=== PATIENT | female | born 1955 | race African-American/Black ===

== ENCOUNTER 2016-10-30 12:39 | Emergency (ER) | payer MEDICARE, MEDICAID ==
[~2016-10-30] VITALS: Ht 149.9 cm; Wt 72.0 kg
[~2016-10-30 12:39] MED LIST: ATOR10 PO; CARV6.25 PO; CLOP75 PO; ECASA PO; GLIP10TA6 PO; GLUCTAB PO; HYDR12.56 PO; LOSA50TA PO; OMEP20TA39 PO; ZOFR4TAB3 PO
[2016-10-30 12:41] VITALS: BP 159/63; PULSE 89; RESP 16; TEMP 98.6; O2SAT 96
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
[2016-10-30] MEDS ORDERED: FLUCONAZOLE 100 MG TAB PO ONE (13:45)
[2016-10-30] MEDS ORDERED: LIPI80TA PO (14:15)
[2016-10-30] MEDS ORDERED: AMLO10TA2 PO (14:15)
[2016-10-30] MEDS ORDERED: OMEP20TA PO (14:15)
[2016-10-30] MEDS ORDERED: METF500T PO (14:15)
[2016-10-30] MEDS ORDERED: BRIL90TA PO (14:15)
[2016-10-30] MEDS ORDERED: SPIR25TA PO (14:15)
[2016-10-30] MEDS ORDERED: GLIP5TAB8 PO (14:15)
[2016-10-30] MEDS ORDERED: LOSA50TA PO (14:15)
[2016-10-30] MEDS ORDERED: CLON0.1T PO (14:15)
[2016-10-30] MEDS ORDERED: CORE25TA PO (14:15)
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
[2016-10-30] MEDS ORDERED: NYSTPOW TOPICAL (15:19)
[2016-10-30] MEDS ORDERED: MAGICADU2 SWISH-SWAL (15:19)
== END 2016-10-30 18:53 | disposition home or self-care (01) ==
LOC: NEPD 12:39
DX: B37.0 Candidal stomatitis (principal); B37.3 Candidiasis of vulva and vagina; S82.132A Displaced fracture of medial condyle of left tibia, initial encounter for closed fracture; I11.0 Hypertensive heart disease with heart failure; I50.9 Heart failure, unspecified; M06.9 Rheumatoid arthritis, unspecified; J44.9 Chronic obstructive pulmonary disease, unspecified; E11.9 Type 2 diabetes mellitus without complications; W19.XXXA Unspecified fall, initial encounter
CPT/HCPCS: 73564; 99284

== ENCOUNTER 2017-05-08 20:02 | Emergency (ER) | payer MEDICARE, MEDICAID ==
[~2017-05-08] VITALS: Ht 149.9 cm; Wt 70.0 kg
[~2017-05-08 20:02] MED LIST changes: +AMLO10TA2 PO; -ATOR10 PO; +BRIL90TA PO; -CARV6.25 PO; +CLON0.1T PO; -CLOP75 PO; +CORE25TA PO; -ECASA PO; -GLIP10TA6 PO; +GLIP5TAB8 PO; -GLUCTAB PO; -HYDR12.56 PO; +LIPI80TA PO; +MAGICADU2 SWISH-SWAL; +METF500T PO; +NYSTPOW TOPICAL; -OMEP20TA39 PO; +OMEP20TA93 PO; +SPIR25TA PO; -ZOFR4TAB3 PO
[2017-05-08 20:17] VITALS: BP 173/72; PULSE 93; RESP 20; TEMP 98.4; O2SAT 100
[2017-05-08] MEDS ORDERED: SODIUM CHLORIDE 0.9% FLUSH 10 ML FLUSH IVF PRN (20:30)
[2017-05-08 20:47] VITALS: RESP 20; O2SAT 99
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
[2017-05-08 21:01] LABS: AUTOMATED NEUTROPHIL # 5.9 TH/MM3 (1.8-7.7); BASOPHIL % 0.3 % (0.0-2.0); EOSINOPHIL % 0.1 % (0.0-4.0); HEMATOCRIT 39.1 % (35.0-46.0); HEMOGLOBIN 13.2 GM/DL (11.6-15.3); LYMPH % 9.5 % (9.0-44.0); LYMPHOCYTE # 0.6 TH/MM3 (1.0-4.8); MEAN CELL VOLUME 87.3 FL (80.0-100.0); MEAN CORPUSCULAR HEMOGLOBIN 29.4 PG (27.0-34.0); MEAN CORPUSCULAR HGB CONC 33.7 % (32.0-36.0); MEAN PLATELET VOLUME 9.5 FL (7.0-11.0); MONO % 2.7 % (0.0-8.0); MONOCYTE # 0.2 TH/MM3 (0-0.9); NEUT % 87.4 % (16.0-70.0); PLATELET COUNT 253 TH/MM3 (150-450); RED BLOOD COUNT 4.48 MIL/MM3 (4.00-5.30); RED CELL DISTRIBUTION WIDTH 14.6 % (11.6-17.2); WHITE BLOOD COUNT 6.7 TH/MM3 (4.0-11.0)
[2017-05-08 21:07] VITALS: BP 145/65; PULSE 88; RESP 18; O2SAT 98
--- NOTE | 2017-05-08 21:31 | RADRPT ---
EXAM DATE/TIME: 05/08/2017 20:43 [facility] COMPARISON: No previous studies available for comparison. INDICATIONS : Short of breath. MEDICAL HISTORY : Myocardial infarction. Cholelithiasis. Emphysema. Coronary artery disease. Diabetes. SURGICAL HISTORY : Coronary artery stent. ENCOUNTER: Initial ACUITY: 1 day PAIN SCORE: 0/10 LOCATION: Bilateral chest FINDINGS: A single view of the chest demonstrates the lungs to be symmetrically aerated without evidence of mas s, infiltrate or effusion. The cardiomediastinal contours are unremarkable. Osseous structures are intact. CONCLUSION: 1. No active disease. Tortuous aorta. Brad Mahmood MD on May 08, 2017 at 21:26 Board Certified Radiologist. This report was verified electronically.
[2017-05-08 22:17] LABS: BICARBONATE 20.2 MEQ/L (21.0-32.0); CALCIUM 9.6 MG/DL (8.5-10.1); CREATININE 1.09 MG/DL (0.50-1.00)
[2017-05-08] MEDS ORDERED: SODIUM CHLOR 0.9% 1000 ML INJ 1,000 ML IV ONE (22:30)
[2017-05-08 22:54] VITALS: BP 116/53; PULSE 79; RESP 18; O2SAT 99
[2017-05-09 04:03] VITALS: BP 167/64; PULSE 64; RESP 18; O2SAT 99
[2017-05-09 08:52] VITALS: BP 165/69; PULSE 62; RESP 19; TEMP 98.5; O2SAT 98
--- NOTE | 2017-05-09 14:18 | EKG ---
Date Performed: 05/08/2017 Time Performed: 20:50:36 PTAGE: 62 years EKG: Baseline artifact present Sinus rhythm NONSPECIFIC T-WAVE ABNORMALITY BORDERLINE ECG No significant change from prior electrocardiogram. PREVIOUS TRACING : 02/20/2015 19.04 DOCTOR: Ruy Dotson Interpretating Date/Time 05/09/2017 14:16:44
== END 2017-05-09 09:36 | disposition home or self-care (01) ==
LOC: NEPC 20:02 → NEPD 05-09 09:36
DX: R05 Cough (principal); R06.00 Dyspnea, unspecified; E86.0 Dehydration; R94.31 Abnormal electrocardiogram [ECG] [EKG]; E11.9 Type 2 diabetes mellitus without complications; I11.0 Hypertensive heart disease with heart failure; I50.9 Heart failure, unspecified; J43.9 Emphysema, unspecified; F17.200 Nicotine dependence, unspecified, uncomplicated
CPT/HCPCS: 71045; 80048; 83605; 85025; 87040; 93005

== ENCOUNTER 2017-08-08 01:45 | Inpatient (IN) | payer MEDICARE, MEDICAID ==
[2017-08-08] VITALS (11 sets, daily range): BP systolic 107–203; BP diastolic 67–92; PULSE 57–75; RESP 17–24; TEMP 97.6–98.3; O2SAT 98–100
[~2017-08-08] VITALS: Ht 152.4 cm; Wt 74.9 kg
--- NOTE | 2017-08-08 02:00 | PD ---
HPI Chief Complaint: Neuro Symptoms/ Deficits Time Seen by Provider: 01:55 Travel History International Travel<30 days: No Contact w/Intl Traveler<30days: No Traveled to known affect area: No History of Present Illness HPI Patient developed nausea vomiting and weakness along with some mental status changes according to the family. Per chart review allergies to ampicillin codeine latex lisinopril and penicillin Past medical history significant for tonsillectomy, wearing corrective lenses, CVA, hypertension, ME, CHF, repair of aortic dissection in 1988, hypercholesterolemia, hypertension, COPD, diverticulitis, diabetes, bowel resection, rheumatoid arthritis, diverticulitis, PFSH Past Medical History Arthritis: Yes Asthma: Yes Autoimmune Disease: No Blood Disorders: No Heart Rhythm Problems: Yes (MURMUR) Cancer: No Cardiac Catheterization: Yes Cardiovascular Problems: Yes (HTN) High Cholesterol: Yes Chemotherapy: No Chest Pain: Yes Congestive Heart Failure: Yes COPD: Yes Cerebrovascular Accident: Yes Diabetes: Yes Diminished Hearing: No Gastrointestinal Disorders: Yes (DIVERTICULITIS, FISTULA) Genitourinary: No Headaches: No Hypertension: Yes Immune Disorder: No Implanted Vascular Access Dvce: Yes Musculoskeletal: Yes (RHEUMATOID) Neurologic: Yes Psychiatric: No Reproductive: No Respiratory: Yes Immunizations Current: Yes Migraines: No Myocardial Infarction: Yes Radiation Therapy: No Seizures: No Sleep Apnea: Yes Thyroid Disease: No PNEUMOCCOCAL Vaccine (Year): 2009 Menopausal: Yes Past Surgical History Abdominal Surgery: Yes Appendectomy: Yes Body Medical Devices: STENTS Cardiac Surgery: Yes (REPAIR OF AORTIC DISSECTION 1988, CARDIAC CATHERIZATION) Cholecystectomy: Yes Coronary Stent: Yes Oral Surgery: Yes (T & A) Pacemaker: No Tonsillectomy: Yes Other Surgery: Yes (BOWEL RESECTION) Social History Alcohol Use: No Tobacco Use: Yes (1 PPW) Substance Use: No Allergies-Medications (Allergen,Severity, Reaction): Coded Allergies: ampicillin (Unverified Allergy, Severe, Anaphylaxis, 05/08/17) penicillin G (Unverified Allergy, Severe, TONGUE SWELLS BREATHING ISSUES, 05/08/17) codeine (Unverified Allergy, Intermediate, RASH, 05/08/17) latex (Unverified Allergy, Intermediate, RASH,HIVES, 05/08/17) lisinopril (Unverified Allergy, Mild, Cough, 05/08/17) Reported Meds & Prescriptions Reported Meds & Active Scripts Active Reported Advair Diskus Inh (Fluticasone-Salmeterol Inh) 250-50 Mcg/Blist Aer 1 Puff INH BID Rinse mouth after use. Nystatin-Triamcinolone 100,000-0.1 Unit/Gm Oint 1 Applic TOPICAL DAILY Vandazole Vaginal Gel (Metronidazole) 0.75 % Gel 1 Appl VAGINAL HS Fluconazole 200 Mg Tab 200 Mg PO BID Aspirin 81 Mg Chew 81 Mg CHEW DAILY Ammonium Lactate (Lactic Acid (Ammonium Lactate)) 12% Lotn 1 Applic TOPICAL TID Brilinta (Ticagrelor) 90 Mg Tab 90 Mg PO BID Omeprazole 20 Mg Tab 20 Mg PO DAILY Glipizide 5 Mg Tab 5 Mg PO DAILY Take 30 minutes before a meal Clonidine (Clonidine HCl) 0.1 Mg Tab 0.1 Mg PO TID Physical Exam Narrative GENERAL: amereican lady. SKIN: Warm and dry. HEAD: Atraumatic. Normocephalic. EYES: Pupils equal and round. No scleral icterus. No injection or drainage. ENT: No nasal bleeding or discharge. Mucous membranes pink and moist. NECK: Trachea midline. No JVD. CARDIOVASCULAR: Regular rate and rhythm. RESPIRATORY: No accessory muscle use. Clear to auscultation. Breath sounds equal bilaterally. GASTROINTESTINAL: Abdomen soft, non-tender, nondistended. Hepatic and splenic margins not palpable. MUSCULOSKELETAL: Extremities without clubbing, cyanosis, or edema. No obvious deformities. NEUROLOGICAL: Arousable to verbal, though somnolent.. No obvious cranial nerve deficits. Motor grossly within normal limits. 4 out of 5 muscle strength in the left arms and legs. mild facial asymetry noted...groggy and somnolent. PSYCHIATRIC: Appropriate mood and affect; insight and judgment normal. Data Data Last Documented VS Vital Signs Date Time Temp Pulse Resp B/P (MAP) Pulse Ox O2 Delivery O2 Flow Rate FiO2 08/08/17 03:45 61 20 162/72 (102) 98 Room Air 08/08/17 01:51 98.2 Orders Orders Electrocardiogram (08/08/17 01:55) Complete Blood Count With Diff (08/08/17 01:55) Comprehensive Metabolic Panel (08/08/17 01:55) Ckmb (Isoenzyme) Profile (08/08/17 01:55) Troponin I (08/08/17 01:55) B-Type Natriuretic Peptide (08/08/17 01:55) Prothrombin Time / Inr (Pt) (08/08/17 01:55) Act Partial Throm Time (Ptt) (08/08/17 01:55) Lipase (08/08/17 01:55) Urinalysis - C+S If Indicated (08/08/17 01:55) Thyroid Stimulating Hormone (08/08/17 01:55) Chest, Single Ap (08/08/17 01:55) Ct Brain W/O Iv Contrast(Rout) (08/08/17 01:55) Iv Access Insert/Monitor (08/08/17 01:55) Ecg Monitoring (08/08/17 01:55) Oximetry (08/08/17 01:55) Urinary Catheter Insert/Apply (08/08/17 01:55) Admit Order (Ed Use Only) (08/08/17 03:59) Place In Observation (08/08/17 ) Vital Signs (Adult) Q2HX12,Q4H (08/08/17 03:58) Nih Stroke Scale - Nihss .Daily (08/08/17 03:58) Neuro Checks Q2HX12,Q4H (08/08/17 03:58) Notify Dr: Other (08/08/17 03:58) Remove Urinary Catheter .ONCE (08/08/17 03:58) Ot Request For Service (08/08/17 03:58) Pt Request For Service (08/08/17 03:58) Case Management Consult (08/08/17 ) Activity Oob Ad Maye (08/08/17 03:58) Nursing Bedside Swallow Assess .ONCE (08/08/17 03:58) Scd Bilateral/Knee High DORIAN.QSHIFT (08/08/17 03:58) Hemoglobin (Hgb) A1c (08/08/17 03:58) Lipid Profile (08/09/17 06:00) Us Carotid Arteries Comp Bilat (08/08/17 ) Mra Brain W/O Contrast (Cow) (08/08/17 ) Mri Brain W/O Contrast (08/08/17 ) Echo 2d Comp With Doppler (08/08/17 ) ^ Hold Medication (08/08/17 03:58) Consult Neurology (08/08/17 ) Sodium Chloride 0.9% Flush (Ns Flush) (08/08/17 09:00) Sodium Chloride 0.9% Flush (Ns Flush) (08/08/17 04:00) Sodium Chlor 0.9% 1000 Ml Inj (Ns 1000 M (08/08/17 03:58) Aspirin (Aspirin) (08/08/17 04:00) Bedside Glucose DORIAN.CSUGAR (08/08/17 03:58) ^ Discontinue Insulin Orders (08/08/17 03:58) Insulin Aspart Supplemtl Scale (Novolog (08/08/17 08:00) Dextrose 50% In Sherry (Vial) Inj (D50w (Vi (08/08/17 04:00) Glucagon Inj (Glucagon Inj) (08/08/17 04:00) Business Center Attendant / Telemetry DORIAN.Q8H (08/08/17 03:58) Consult Stroke Navigator (08/08/17 ) Heparin Inj (Heparin Inj) (08/08/17 04:00) Nursing Bedside Swallow Assess .ONCE (08/08/17 04:01) Labs Laboratory Tests Test 08/08/17 02:10 White Blood Count 6.8 TH/MM3 Red Blood Count 4.48 MIL/MM3 Hemoglobin 13.7 GM/DL Hematocrit 39.3 % Mean Corpuscular Volume 87.8 FL Mean Corpuscular Hemoglobin 30.5 PG Mean Corpuscular Hemoglobin Concent 34.7 % Red Cell Distribution Width 13.8 % Platelet Count 230 TH/MM3 Mean Platelet Volume 9.1 FL Neutrophils (%) (Auto) 65.2 % Lymphocytes (%) (Auto) 27.5 % Monocytes (%) (Auto) 5.4 % Eosinophils (%) (Auto) 1.4 % Basophils (%) (Auto) 0.5 % Neutrophils # (Auto) 4.4 TH/MM3 Lymphocytes # (Auto) 1.9 TH/MM3 Monocytes # (Auto) 0.4 TH/MM3 Eosinophils # (Auto) 0.1 TH/MM3 Basophils # (Auto) 0.0 TH/MM3 CBC Comment DIFF FINAL Differential Comment Prothrombin Time 9.8 SEC Prothromb Time International Ratio 1.0 RATIO Activated Partial Thromboplast Time 26.4 SEC Blood Urea Nitrogen 20 MG/DL Creatinine 0.96 MG/DL Random Glucose 148 MG/DL Total Protein 8.5 GM/DL Albumin 3.4 GM/DL Calcium Level 8.5 MG/DL Alkaline Phosphatase 120 U/L Aspartate Amino Transf (AST/SGOT) 13 U/L Alanine Aminotransferase (ALT/SGPT) 17 U/L Total Bilirubin 0.3 MG/DL Sodium Level 141 MEQ/L Potassium Level 3.4 MEQ/L Chloride Level 107 MEQ/L Carbon Dioxide Level 24.0 MEQ/L Anion Gap 10 MEQ/L Estimat Glomerular Filtration Rate 71 ML/MIN Hemoglobin A1c 7.0 % Total Creatine Kinase 59 U/L Troponin I LESS THAN 0.02 NG/ML B-Type Natriuretic Peptide 51 PG/ML Lipase 127 U/L Thyroid Stimulating Hormone 3rd Gen 1.320 uIU/ML MDM Medical Decision Making Medical Screen Exam Complete: Yes Emergency Medical Condition: Yes Medical Record Reviewed: Yes Interpretation(s) EKG shows normal sinus rhythm, left atrial enlargement, 61 bpm, inverted T waves on [address] elevation ME pattern noted. Differential Diagnosis Intracranial hemorrhage versus UTI versus pneumonia versus electrolyte abnormality versus dehydration versus anemia Narrative Course CBC shows no leukocytosis, no anemia, normal platelet count, no left shift Coagulation profile is within normal limits Electrolytes are all within normal limits, normal kidney/liver/pancreatic functions First set of cardiac enzymes are negative Chest x-ray read by radiologist as negative examination with healed left-sided rib fractures CT head read by radiologist as lateral ventricular enlargement stable no evidence of acute hemorrhage or edema. No interval change since December 2015. Diagnosis Primary Impression: Generalized weakness Additional Impressions: Debility unable to walk [facility] Admitting Information Admitting Physician Requests: Adalberto Huber MD Aug 08, 2017 02:00
[2017-08-08] MEDS ORDERED: ADVA250A INH (02:24)
[2017-08-08] MEDS ORDERED: AMMO12LO TOPICAL (02:24)
[2017-08-08] MEDS ORDERED: ASPI-516 CHEW (02:24)
[2017-08-08] MEDS ORDERED: NYST1OIN TOPICAL (02:24)
[2017-08-08] MEDS ORDERED: FLUC200T2 PO (02:24)
[2017-08-08] MEDS ORDERED: METR.75%V VAGINAL (02:24)
--- NOTE | 2017-08-08 02:29 | RADRPT ---
EXAM DATE: 08/08/2017 2:24 AM EDT AGE/SEX: 62 years / Female INDICATIONS: Altered mental status. CLINICAL DATA: This is the patient's initial encounter. Patient reports that signs and symptoms have been present for 1 day and indicates a pain score of 4/10. MEDICAL/SURGICAL HISTORY: Hypertension. Stroke. None. RADIATION DOSE: 56.35 CTDI (mGy) COMPARISON: [place], CT BRAIN W/O CONTRAST, 12/22/2015. . TECHNIQUE: CT of the head without contrast. Using automated exposure control and adjustment of the mA and/or kV according to patient size, radiation dose was kept as low as reasonably achievable to ob tain optimal diagnostic quality images. DICOM format image data is available electronically for revi ew and comparison. FINDINGS: Cerebrum: The ventricles remain prominent in size. There is periventricular areas of decreased densi ty bilaterally and symmetric. There is some encephalomalacia in the right posterior frontal region, u nchanged. There is hypodensity in the left basal ganglia, unchanged. No evidence of acute hemorrhage or subdural. Posterior Fossa: The cerebellum and brainstem are intact. The 4th ventricle is midline. The cerebe llopontine angle is unremarkable. Extracranial: The visualized portion of the orbits is intact. Skull: The calvaria is intact. No evidence of skull fracture. CONCLUSION: 1. Marked lateral ventricular enlargement stable. No evidence of acute hemorrhage or edema. No inter destini change since December 2015 Electronically signed by: Daniel Connelly MD 08/08/2017 2:28 AM EDT
[2017-08-08 02:33] LABS: AUTOMATED NEUTROPHIL # 4.4 TH/MM3 (1.8-7.7); BASOPHIL % 0.5 % (0.0-2.0); EOSINOPHIL # 0.1 TH/MM3 (0-0.4); EOSINOPHIL % 1.4 % (0.0-4.0); HEMATOCRIT 39.3 % (35.0-46.0); HEMOGLOBIN 13.7 GM/DL (11.6-15.3); LYMPH % 27.5 % (9.0-44.0); LYMPHOCYTE # 1.9 TH/MM3 (1.0-4.8); MEAN CELL VOLUME 87.8 FL (80.0-100.0); MEAN CORPUSCULAR HEMOGLOBIN 30.5 PG (27.0-34.0); MEAN CORPUSCULAR HGB CONC 34.7 % (32.0-36.0); MEAN PLATELET VOLUME 9.1 FL (7.0-11.0); MONO % 5.4 % (0.0-8.0); MONOCYTE # 0.4 TH/MM3 (0-0.9); NEUT % 65.2 % (16.0-70.0); PLATELET COUNT 230 TH/MM3 (150-450); RED BLOOD COUNT 4.48 MIL/MM3 (4.00-5.30); RED CELL DISTRIBUTION WIDTH 13.8 % (11.6-17.2); WHITE BLOOD COUNT 6.8 TH/MM3 (4.0-11.0)
--- NOTE | 2017-08-08 02:37 | RADRPT ---
EXAM DATE: 08/08/2017 2:30 AM EDT AGE/SEX: 62 years / Female INDICATIONS: Severe headache with nausea and altered mental status. CLINICAL DATA: This is the patient's initial encounter. Patient reports that signs and symptoms have been present for 1 day and indicates a pain score of 0/10. MEDICAL/SURGICAL HISTORY: . Myocardial infarction. Cholelithiasis. Emphysema Coronary artery stent. COMPARISON: [facility] – [place], CHEST SINGLE AP, 05/08/2017. . FINDINGS: A single AP view of the chest demonstrates the lungs to be symmetrically aerated without evidence of mass, infiltrate or effusion. The cardiomediastinal contours are unremarkable. Osseous structures a re intact. Numerous healed left-sided rib fractures unchanged CONCLUSION: Negative examination with numerous healed left-sided rib fractures. Electronically signed by: Daniel Connelly MD 08/08/2017 2:36 AM EDT
[2017-08-08 02:44] LABS: PROTHROMBIN TIME - PATIENT 9.8 SEC (9.8-11.6)
[2017-08-08 03:01] LABS: ALBUMIN 3.4 GM/DL (3.4-5.0); ALT (GPT) 17 U/L (10-53); AST (GOT) 13 U/L (15-37); BLOOD UREA NITROGEN 20 MG/DL (7-18); CALCIUM 8.5 MG/DL (8.5-10.1); CHLORIDE 107 MEQ/L (98-107); CREATININE 0.96 MG/DL (0.50-1.00); GLOMERULAR FILTRATION RATE 71 ML/MIN (>89); GLUCOSE,RANDOM 148 MG/DL (74-106); SODIUM (NA) 141 MEQ/L (136-145)
[2017-08-08 03:11] LABS: ALKALINE PHOSPHATASE 120 U/L (45-117); TOTAL BILIRUBIN ADULT 0.3 MG/DL (0.2-1.0); TOTAL PROTEIN 8.5 GM/DL (6.4-8.2); TROPONIN I LESS THAN 0.02 NG/ML (0.02-0.05)
[2017-08-08] MEDS ORDERED: SODIUM CHLORIDE 0.9% FLUSH 10 ML FLUSH IV FLUSH PRN (04:00)
[2017-08-08] MEDS ORDERED: GLUCAGON 1 MG/ML VIAL OTHER PRN (04:00)
[2017-08-08] MEDS ORDERED: DEXTROSE 50% IN WATER 50 ML VIAL(D50) IV PUSH PRN (04:00)
[2017-08-08] MEDS ORDERED: POTASSIUM CHLORIDE 20 MEQ CONTROLLED RELEASE TAB PO ONE (04:15)
[2017-08-08] MEDS: ASPIRIN 325 MG TAB PO SCH ×2 (05:22→09:00)
[2017-08-08] MEDS: SODIUM CHLOR 0.9% 1000 ML INJ 1,000 ML IV SCH ×2 (05:22→18:16)
[2017-08-08] MEDS: HEPARIN SODIUM - SQ 10,000 UNITS/ML VIAL SQ SCH ×3 (05:23→21:52)
[2017-08-08 05:55] LABS: BILIRUBIN, URINE NEG (NEG); BLOOD, URINE SMALL (NEG); GLUCOSE,URINE 50 mg/dL (NEG); KETONE, URINE NEG (NEG); MUCUS URINE FEW /lpf (OCC); NITRITE,URINE NEG (NEG); SQUAMOUS EPITHELIAL CELL URINE 1 /hpf (0-5); URINE COLOR YELLOW (YELLW/STRAW); URINE LEUKOCYTE ESTERASE NEG (NEG)
[2017-08-08] MEDS: INSULIN ASPART SUPPLEMENTAL SCALE SQ SCH ×4 (08:00→21:52)
[2017-08-08] MEDS: ATORVASTATIN 80 MG TAB PO SCH ×2 (09:00→10:52)
[2017-08-08] MEDS: CARVEDILOL 12.5 MG TAB PO SCH ×2 (09:00→10:51)
[2017-08-08] MEDS: LOSARTAN 50 MG TAB PO SCH ×2 (09:00→10:52)
[2017-08-08] MEDS: SPIRONOLACTONE 25 MG TAB PO SCH ×2 (09:00→10:57)
[2017-08-08] MEDS: SODIUM CHLORIDE 0.9% FLUSH 10 ML FLUSH IV FLUSH SCH ×2 (09:00→21:53)
--- NOTE | 2017-08-08 09:14 | RADRPT ---
EXAM DATE: 08/08/2017 8:55 AM EDT AGE/SEX: 62 years / Female INDICATIONS: Transient ischemic attack. CLINICAL DATA: This is the patient's initial encounter. Patient reports that signs and symptoms have been present for 1 day and indicates a pain score of 0/10. MEDICAL/SURGICAL HISTORY: Hypertension. Hypercholesterolemia. Chronic obstructive pulmonary d isease. Glasses. Myocardial infarction. Congestive heart failure. Chest pain. Asthma. Emphysema. Sle ep apnea. Dyspnea. Arthritis. Diabetes. Tonsillectomy. Cholecystectomy. Appendectomy. Adenoidecto my. Cardiac catheterization. Aortic dissection repair. Coronary artery stent. Bowel resection. COMPARISON: No prior exams available for comparison. VELOCITY PARAMETERS: ICA/CCA Ratio: Right 1.7 , Left 1.9 ICA: Right 115.6 cm/sec, Left 119.6 cm/sec CCA: Right 66.9 cm/sec, Left 63.3 cm/sec ECA: Right 101.8 cm/sec, Left 52.3 cm/sec Vertebral: Right 43.5 cm/sec antegrade, Left 47.9 cm/sec antegrade FINDINGS: Right Carotid: Moderate arteriosclerotic plaque is visualized.The waveforms are within normal limits . Left Carotid: Moderate arteriosclerotic plaque is visualized. The waveforms are within normal limits . Other: None. CONCLUSION: There is moderate atherosclerotic plaque seen at the carotid bulb regions but a hemodynam ically significant stenosis is not seen. Electronically signed by: Eduin Muir MD 08/08/2017 9:13 AM EDT
--- NOTE | 2017-08-08 10:03 | RADRPT ---
EXAM DATE: 08/08/2017 9:24 AM EDT AGE/SEX: 62 years / Female INDICATIONS: TIA. Altered mental status. CLINICAL DATA: This is the patient's initial encounter. Patient reports that signs and symptoms have been present for 1 day and indicates a pain score of 0/10. MEDICAL/SURGICAL HISTORY: Hypertension. Cerebrovascular disease. Congestive heart failure. Ch olecystectomy. Tonsillectomy. Appendectomy. Aortic dissection repair. Bowel resection. COMPARISON: [facility] – [place], MRA BRAIN W/O CONTRAST, 05/27/2014. [facility] [place], MRI BRAIN W/O CONTRAST, 08/08/2017. . TECHNIQUE: 3D [id number] MRA was performed. Source images, multiplanar STS MIP, and 3D volum e MIP reconstructions were reviewed. FINDINGS: There is excellent visualization of the major intracranial arteries out to the second-order branch ve ssels. There is no evidence for aneurysm, vessel truncation or stenosis, and no evidence for vascula r malformation. CONCLUSION: Negative MRA. Electronically signed by: Eduin Muir MD 08/08/2017 10:02 AM EDT
--- NOTE | 2017-08-08 10:16 | RADRPT ---
EXAM DATE: 08/08/2017 9:24 AM EDT AGE/SEX: 62 years / Female INDICATIONS: Altered mental status. TIA. CLINICAL DATA: This is the patient's initial encounter. Patient reports that signs and symptoms have been present for 1 day and indicates a pain score of 0/10. MEDICAL/SURGICAL HISTORY: Hypertension. Cerebrovascular disease. Congestive heart failure. Ap pendectomy. Cholecystectomy. Tonsillectomy. Aortic dissection repair. Bowel resection. COMPARISON: [facility] – [place], [place], CT BRAIN W/O CONTRAST, 09/16/2014. [facility] [place], [place], CT BRAIN W/O CONTRAST, 08/08/2017. . TECHNIQUE: Multiplanar, multisequence examination of the brain was performed without contrast. FINDINGS: Cerebrum: The ventricles and cortical sulci are widened. There appears to be a lacunar infarct at th e anterior lateral left thalamus. There is a suspected lacunar infarct at the left thalamus. On the d iffusion-weighted images, this demonstrates a low signal component anteriorly and higher signal compo nent posteriorly. There some minimal increased signal on the T2-weighted images. This focal area of i ncreased signal on the diffusion-weighted images either represents a more acute component or some T2 shine through phenomenon. There is some increased signal within the more medial aspect of the left t halamus on the T2-weighted images and diffusion-weighted images likely from some encephalomalacia and prior infarction. No evidence of midline shift or mass lesion. No acute areas of hemorrhage are seen . There are multiple focal areas of low signal seen on the SWI images which could represent prior hem orrhage., White Matter: There is increased signal seen throughout the cerebral and pontine white matter. Posterior Fossa: The cerebellum and brainstem are intact. The 4th ventricle is midline. The cerebel lopontine angle is unremarkable. The cerebellar tonsils are normal in position. Diffusion Imaging: No focal areas of restricted diffusion are seen. No evidence of acute infarction . Extracranial: The visualized portions of the orbits and paranasal sinuses are unremarkable. There is nonspecific intermediate signal seen in the bony portion of the sella inferior to the pituitary. Thi s is nonspecific. CONCLUSION: 1. Diffuse increased signal seen throughout the cerebral and pontine white matter consistent with wi despread demyelination likely from small vessel ischemic change. 2. Age-related atrophy. 3. Suspected encephalomalacia and lacunar infarction at the left thalamus. There is a small focus of increased signal on the diffusion weighted images which is likely a T2 shine through phenomenon vers us a small component of acute lacunar infarction. 4. Nonspecific small area of intermediate signal seen in the bony silhouette just below the pituitar y. 5. Multiple areas of low signal seen on yesterday while images which could represent the sequela of prior hemorrhage. Electronically signed by: Eduin Muri MD 08/08/2017 10:14 AM EDT
[2017-08-08] MEDS: PANTOPRAZOLE SOD 20 MG DELAYED RELEASE TAB PO SCH (10:52)
[2017-08-08] MEDS: cloNIDine HCL 0.1 MG TAB PO SCH ×3 (10:52→17:40)
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
[2017-08-08] MEDS: BUDESONIDE-FORMOTEROL 160/4.5 MCG INHALER INH SCH ×2 (11:38→21:53)
[2017-08-08] MEDS: TICAGRELOR 90 MG TAB PO SCH ×2 (11:38→21:53)
[2017-08-08] MEDS ORDERED: RESP: ALBUTEROL 2.5 MG/IPRATROPIUM 0.5 MG NEB (PRN) NEB ×2 (13:45→19:45)
--- NOTE | 2017-08-08 13:51 | HHI.HP ---
HPI Service [facility] Hospitalists Primary Care Physician Unknown Admission Diagnosis DEBILITY, GEN WEAKNESS, UNABLE TO AMBULATE Diagnoses: Chief Complaint: Altered mental status Dizziness Headache Vomiting Travel History International Travel<30 Days: No Contact w/Intl Traveler <30 Da: No Traveled to Known Affected Are: No History of Present Illness This is a 62-year-old female with past medical history significant for hypertension, diabetes, history of CVA with residual left-sided weakness, history of aortic dissection repair in 1988, CHF, coronary artery disease status post [place] 2010 and cardiac stent placement on Brilinta, rheumatoid arthritis and COPD with ongoing tobaccoism who presents to [facility] ED with altered mental status and near syncopal episode. Patient states she has been in her usual state of health and denies any recent illness. She states that last night she went to bed around 11:00. At some point she woke up and when she went to stand she became extremely dizzy and fell back on the bed. She reports associated headache, nausea and vomiting and shortness of breath. She denies any chest pain or palpitations. She denies any numbness, tingling or weakness. She states that she can hear her family talking about her but she was unable to respond. She denies biting her tongue but does report urinary incontinence. She does not have a history of seizure disorders. In the ED, patient was found to have uncontrolled hypertension with blood pressure of 203/ 81. CT the head shows marked lateral ventricular enlargement which is stable from previous exam, no evidence of acute hemorrhage or edema. EKG revealed normal sinus rhythm and no evidence of acute ischemia. Initial troponin was negative. CBC is unremarkable and electrolytes within normal limits. Chest x- ray revealed healed left-sided rib fractures otherwise no acute cardiopulmonary process identified. Review of Systems Except as stated in HPI: all other systems reviewed are Neg Past Family Social History Past Medical History Hypertension Diabetes History of CVA 2, 2012 and 2014 with residual left-sided weakness Coronary artery disease status post [place] 2010 status post cardiac stent CHF Carotid artery stenosis Rheumatoid arthritis COPD Ongoing tobaccoism History of aortic dissection repair 1988 Past Surgical History Cardiac stent Aortic dissection repair 1988 Bowel resection Appendectomy Cholecystectomy Reported Medications Advair Diskus Inh (Fluticasone-Salmeterol Inh) 250-50 Mcg/Blist Aer 1 Puff INH BID Rinse mouth after use. Nystatin-Triamcinolone 100,000-0.1 Unit/Gm Oint 1 Applic TOPICAL DAILY Vandazole Vaginal Gel (Metronidazole) 0.75 % Gel 1 Appl VAGINAL HS Fluconazole 200 Mg Tab 200 Mg PO BID Aspirin 81 Mg Chew 81 Mg CHEW DAILY Ammonium Lactate (Lactic Acid (Ammonium Lactate)) 12% Lotn 1 Applic TOPICAL TID Lipitor (Atorvastatin Calcium) 80 Mg Tab 80 Mg PO DAILY Spironolactone 25 Mg Tab 25 Mg PO BID Metformin (Metformin HCl) 500 Mg Tab 500 Mg PO BID With meals Coreg (Carvedilol) 25 Mg Tab 25 Mg PO BID Amlodipine (Amlodipine Besylate) 10 Mg Tab 10 Mg PO DAILY Brilinta (Ticagrelor) 90 Mg Tab 90 Mg PO BID Omeprazole 20 Mg Tab 20 Mg PO DAILY Losartan (Losartan Potassium) 50 Mg Tab 50 Mg PO DAILY Glipizide 5 Mg Tab 5 Mg PO DAILY Take 30 minutes before a meal Clonidine (Clonidine HCl) 0.1 Mg Tab 0.1 Mg PO TID Allergies: Coded Allergies: ampicillin (Unverified Allergy, Severe, Anaphylaxis, 05/08/17) penicillin G (Unverified Allergy, Severe, TONGUE SWELLS BREATHING ISSUES, 05/08/17) codeine (Unverified Allergy, Intermediate, RASH, 05/08/17) latex (Unverified Allergy, Intermediate, RASH,HIVES, 05/08/17) lisinopril (Unverified Allergy, Mild, Cough, 05/08/17) Active Ordered Medications Current Medications Medications (Trade) Dose Ordered Sig/Ligia Route Start Time Stop Time Status Last Admin (NS Flush) 2 ml BID IV FLUSH 08/08/17 09:00 08/08/17 09:00 (NS Flush) 2 ml UNSCH PRN IV FLUSH 08/08/17 04:00 Sodium Chloride 1,000 ml @ 70 mls/hr [id number] IV 08/08/17 03:58 08/08/17 05:22 (Aspirin) 325 mg DAILY PO 08/08/17 04:00 08/08/17 05:22 (NovoLOG SUPPLEMENTAL SCALE) 1 ACHS SQ 08/08/17 08:00 08/08/17 12:00 (D50w (Vial) Inj) 50 ml UNSCH PRN IV PUSH 08/08/17 04:00 (Glucagon Inj) 1 mg UNSCH PRN OTHER 08/08/17 04:00 (Heparin Inj) 5,000 units Q8H SQ 08/08/17 04:00 08/08/17 10:57 (Norvasc) 10 mg DAILY PO 08/08/17 09:00 (Lipitor) 80 mg DAILY PO 08/08/17 09:00 (Coreg) 25 mg BID PO 08/08/17 09:00 (Catapres) 0.1 mg TID PO 08/08/17 09:00 08/08/17 10:52 (Cozaar) 50 mg DAILY PO 08/08/17 09:00 (Aldactone) 25 mg BID PO 08/08/17 09:00 (Brilinta) 90 mg BID PO 08/08/17 09:00 08/08/17 11:38 (Symbicort 160-4.5 Mcg Inh) 2 puff BID INH 08/08/17 09:00 08/08/17 11:38 (Protonix) 20 mg DAILY PO 08/08/17 09:00 08/08/17 10:52 Family History Cancer Social History Patient has an extensive tobacco use history smoking up to a cart and a half of cigarettes every 2 days, she continues to smoke. She denies any alcohol use or illicit drug use. She lives with her sister. Physical Exam Vital Signs Vital Signs Date Time Temp Pulse Resp B/P (MAP) Pulse Ox O2 Delivery O2 Flow Rate FiO2 08/08/17 12:00 98.0 57 18 107/67 (80) 100 08/08/17 08:00 98.3 69 24 185/92 (123) 100 08/08/17 05:27 61 20 161/67 (98) 99 Room Air 08/08/17 03:45 61 20 162/72 (102) 98 Room Air 08/08/17 02:37 60 18 180/77 (111) 98 Room Air 08/08/17 02:13 75 20 203/81 (121) 98 Room Air 08/08/17 02:02 17 100 Room Air 08/08/17 01:56 62 18 100 Room Air 08/08/17 01:51 98.2 62 17 198/86 (123) 100 Physical Exam GENERAL: This is a well-nourished, well-developed -Luxembourger female patient, in no apparent distress. Awake and alert. Oriented 3. SKIN: No rashes, ecchymoses or lesions. Cool and dry. HEAD: Atraumatic. Normocephalic. No temporal or scalp tenderness. No facial asymmetry EYES: Pupils equal round and reactive. Extraocular motions intact. No scleral icterus. No injection or drainage. ENT: Nose without bleeding or purulent drainage. Throat without erythema, tonsillar hypertrophy or exudate. Uvula midline. Airway patent. NECK: Trachea midline. No lymphadenopathy. Supple, nontender, no meningeal signs. CARDIOVASCULAR: Regular rate and rhythm without murmurs, gallops, or rubs. RESPIRATORY: Fair air entry. Clear to auscultation. Breath sounds equal bilaterally. No wheezes, rales, or rhonchi. GASTROINTESTINAL: Abdomen soft, non-tender, nondistended. No hepato-splenomegaly , or palpable masses. No guarding. MUSCULOSKELETAL: Extremities without clubbing, cyanosis, or edema. No joint tenderness, effusion, or edema noted. No calf tenderness. NEUROLOGICAL: Awake and alert. Cranial nerves II through XII grossly intact. Motor and sensory grossly within normal limits on the right upper and lower extremity, mild weakness noted in left upper and lower extremity. Able to move all extremities spontaneously. Slow speech with appropriate responses. Laboratory Laboratory Tests Test 08/08/17 02:10 08/08/17 05:40 White Blood Count 6.8 Red Blood Count 4.48 Hemoglobin 13.7 Hematocrit 39.3 Mean Corpuscular Volume 87.8 Mean Corpuscular Hemoglobin 30.5 Mean Corpuscular Hemoglobin Concent 34.7 Red Cell Distribution Width 13.8 Platelet Count 230 Mean Platelet Volume 9.1 Neutrophils (%) (Auto) 65.2 Lymphocytes (%) (Auto) 27.5 Monocytes (%) (Auto) 5.4 Eosinophils (%) (Auto) 1.4 Basophils (%) (Auto) 0.5 Neutrophils # (Auto) 4.4 Lymphocytes # (Auto) 1.9 Monocytes # (Auto) 0.4 Eosinophils # (Auto) 0.1 Basophils # (Auto) 0.0 CBC Comment DIFF FINAL Differential Comment Prothrombin Time 9.8 Prothromb Time International Ratio 1.0 Activated Partial Thromboplast Time 26.4 Blood Urea Nitrogen 20 Creatinine 0.96 Random Glucose 148 Total Protein 8.5 Albumin 3.4 Calcium Level 8.5 Alkaline Phosphatase 120 Aspartate Amino Transf (AST/SGOT) 13 Alanine Aminotransferase (ALT/SGPT) 17 Total Bilirubin 0.3 Sodium Level 141 Potassium Level 3.4 Chloride Level 107 Carbon Dioxide Level 24.0 Anion Gap 10 Estimat Glomerular Filtration Rate 71 Total Creatine Kinase 59 Troponin I LESS THAN 0.02 B-Type Natriuretic Peptide 51 Lipase 127 Thyroid Stimulating Hormone 3rd Gen 1.320 Urine Color YELLOW Urine Turbidity CLEAR Urine pH 5.0 Urine Specific [place] 1.016 Urine Protein NEG Urine Glucose (UA) 50 Urine Ketones NEG Urine Occult Blood SMALL Urine Nitrite NEG Urine Bilirubin NEG Urine Urobilinogen LESS THAN 2 Urine Leukocyte Esterase NEG Urine RBC LESS THAN 1 Urine WBC 1 Urine Squamous Epithelial Cells 1 Urine Mucus FEW Microscopic Urinalysis Comment CULT NOT INDICATED Urine Opiates Screen NEG Urine Barbiturates Screen NEG Urine Amphetamines Screen NEG Urine Benzodiazepines Screen NEG Urine Cocaine Screen NEG Urine Cannabinoids Screen NEG Result Diagram: 08/08/1720908/08/17209 Imaging Last Impressions Head CT 08/08/17154 Signed Impressions: CONCLUSION: 1. Marked lateral ventricular enlargement stable. No evidence of acute hemorrh age or edema. No interval change since December 2015 Chest X-Ray 08/08/17154 Signed Impressions: CONCLUSION: Negative examination with numerous healed left-sided rib fractures. Head Magnetic Resonance Angiography 08/08/17 Signed Impressions: CONCLUSION: Negative MRA. Carotid Artery Ultrasound 08/08/17 Signed Impressions: CONCLUSION: There is moderate atherosclerotic plaque seen at the carotid bulb r egions but a hemodynamically significant stenosis is not seen. Brain MRI 08/08/17 Signed Impressions: CONCLUSION: 1. Diffuse increased signal seen throughout the cerebral and pontine white mat ter consistent with widespread demyelination likely from small vessel ischemic change. 2. Age-related atrophy. 3. Suspected encephalomalacia and lacunar infarction at the left thalamus. The re is a small focus of increased signal on the diffusion weighted images which is likely a T2 shine through phenomenon versus a small component of acute lacun ar infarction. 4. Nonspecific small area of intermediate signal seen in the bony silhouette j ust below the pituitary. 5. Multiple areas of low signal seen on yesterday while images which could rep resent the sequela of prior hemorrhage. Caprini VTE Risk Assessment Caprini VTE Risk Assessment: Mod/High Risk (score >= 2) Caprini Risk Assessment Model Point Value = 1 Point Value = 2 Point Value = 3 Point Value = 5 Age 41-60 Minor surgery BMI > 25 kg/m2 Swollen legs Varicose veins or History of unexplained or recurrent spontaneous Oral contraceptives or hormone replacement Sepsis (< 1 month) Serious lung disease, including pneumonia (< 1 month) Abnormal pulmonary function Acute myocardial infarction Congestive heart failure (< 1 month) History of inflammatory bowel disease Medical patient at bed rest Age 61-74 Arthroscopic surgery Major open surgery (> 45 min) Laparoscopic surgery (> 45 min) Malignancy Confined to bed (> 72 hours) Immobilizing plaster cast Central venous access Age >= 75 History of VTE Family history of VTE Factor V Leiden Prothrombin [id number] Lupus anticoagulant Anticardiolipin antibodies Elevated serum homocysteine Heparin-induced thrombocytopenia Other congenital or acquired thrombophilia Stroke (< 1 month) Elective arthroplasty Hip, pelvis, or leg fracture Acute spinal cord injury (< 1 month) Prophylaxis Regimen Total Risk Factor Score Risk Level Prophylaxis Regimen 0-1 Low Early ambulation 2 Moderate Order ONE of the following: *Sequential Compression Device (SCD) *Heparin 5000 units SQ BID 3-4 Higher Order ONE of the following medications: *Heparin 5000 units SQ TID *Enoxaparin/Lovenox 40 mg SQ daily (WT < 150 kg, CrCl > 30 mL/min) *Enoxaparin/Lovenox 30 mg SQ daily (WT < 150 kg, CrCl > 10-29 mL/min) *Enoxaparin/Lovenox 30 mg SQ BID (WT < 150 kg, CrCl > 30 mL/min) AND/OR *Sequential Compression Device (SCD) 5 or more Highest Order ONE of the following medications: *Heparin 5000 units SQ TID (Preferred with Epidurals) *Enoxaparin/Lovenox 40 mg SQ daily (WT < 150 kg, CrCl > 30 mL/min) *Enoxaparin/Lovenox 30 mg SQ daily (WT < 150 kg, CrCl > 10-29 mL/min) *Enoxaparin/Lovenox 30 mg SQ BID (WT < 150 kg, CrCl > 30 mL/min) AND *Sequential Compression Device (SCD) Assessment and Plan Assessment and Plan 62-year-old female with past medical history significant for hypertension, diabetes, history of CVA with residual left-sided weakness, history of aortic dissection repair in 1988, CHF, coronary artery disease status post [place] 2010 and cardiac stent placement on Brilinta, rheumatoid arthritis and COPD with ongoing tobaccoism who presents to [facility] ED with altered mental status and near syncopal episode. Acute encephalopathy Syncopal/near syncopal episode Hx of previous CVA x 2 2012 and 2014 with residual left-sided weakness Head CT shows prominent ventricles which are stable MRI shows white matter changes, small focus of increased signal possibly representing acute lacunar infarction -also shows nonspecific signal and bony portion of the sella inferior to the pituitary Brain MRA negative Carotid ultrasound shows moderate atherosclerotic plaque, no hemodynamically significant stenosis -Consult neurology, appreciate assistance -Neurochecks -Consult stroke navigator -ASA 81mg daily and Lipitor -Obtain 2D echocardiogram -Bedside swallow evaluation -PT/ST/OT eval/tx -Monitor on cardiac telemetry -Fall/seizure/aspiration precautions Hypertension, uncontrolled at ED presentation, now hypotensive and bradycardic Patients med rec includes Norvasc, Coreg, Catapres, Cozaar and Aldactone. Patient states she only takes clonidine and is refusing all other medications. Requested nursing staff update med rec. -Continue on Clonidine -Continue to monitor BP and adjust treatment accordingly Diabetes -HgbA1c pending -Accu-Cheks and insulin sliding scale -Change to heart healthy diabetic diet CAD s/p [place] with subsequent stent implant 2010 Patient has no complaints of chest pain -Continue patient on home dose of Brilinta and ASA daily -monitor CHF, not in acute exacerbation -Continue patient on home dose of Coreg and spironolactone -Monitor for evidence of fluid overload COPD with ongoing tobaccoism, not in acute exacerbation -Discussed smoking cessation, patient states that she is not interested in quitting smoking -Resume patient on home bronchodilator therapy -Duonebs prn -Supplemental oxygen as needed to maintain O2 sats greater than 92% -Continue to monitor respiratory function Hypokalemia -Oral repletion ordered but patient refused -will repeat BMP in a.m. DVT prophylaxis -Heparin sq Discussed Condition With patient, Dr. Villatoro I Dr. Villatoro independently evaluated the above patient. I agree with the above overall assessment and plan. On exam patient has no facial droop, no slurred speech, alert and oriented 3. Appears quite frustrated when asking her questions about orientation. Heart sounds regular rate rhythm, no murmurs, lungs are clear bilaterally unlabored breathing. Physician Certification 2 Midnight Certification Type: Admission for Inpatient Services Order for Inpatient Services The services are ordered in accordance with Medicare regulations or non- Medicare payer requirements, as applicable. In the case of services not specified as inpatient-only, they are appropriately provided as inpatient services in accordance with the 2-midnight benchmark. Estimated LOS (days): 3 3 days is the estimated time the patient will need to remain in the hospital, assuming treatment plan goals are met and no additional complications. Post-Hospital Plan: Not yet determined Radha Sanchez Aug 08, 2017 13:51 Guido Villatoro MD Aug 09, 2017 11:23
[2017-08-08] MEDS ORDERED: cloNIDine HCL 0.1 MG TAB PO PRN (17:15)
--- NOTE | 2017-08-08 18:37 | ECHRPT ---
Indication: CVA/TIA CONCLUSIONS Normal left ventricular size. Mild concentric left ventricular hypertrophy. EF@ 55% The left ventricular systolic function is grossly normal on limited imaging. Mild mitral annular calcification. Aortic valve sclerosis is present. Mild aortic valve regurgitation. There is mild tricuspid valve regurgitation. The estimated pulmonary arterial pressure is 32.7 mmHg. BP: / HR: Rhythm: Sinus MEASUREMENTS (Male / Female) Normal Values Technical Quality:Fair 2D ECHO LV Diastolic Diameter PLAX 4.8 cm 4.2 - 5.9 / 3.9 - 5.3 cm LV Systolic Diameter PLAX 3.0 cm IVS Diastolic Thickness 1.2 cm 0.6 - 1.0 / 0.6 - 0.9 cm LVPW Diastolic Thickness 1.2 cm 0.6 - 1.0 / 0.6 - 0.9 cm LV Relative Wall Thickness 0.5 RV Internal Dim ED PLAX 2.0 cm LVOT Diameter 1.8 cm Aortic Root Diameter 2.8 cm LA Systolic Diameter LX 3.2 cm 3.0 - 4.0 / 2.7 - 3.8 cm M-MODE AV Cusp Separation MM 1.6 cm DOPPLER AV Peak Velocity 164.0 cm/s AV Peak Gradient 10.8 mmHg AV Mean Gradient 5.0 mmHg AV Velocity Time Integral 30.5 cm LVOT Peak Velocity 91.7 cm/s LVOT Peak Gradient 3.4 mmHg LVOT Velocity Time Integral 17.3 cm AV Area Cont Eq vti 1.4 cm AV Area Cont Eq pk 1.4 cm Mitral E Point Velocity 93.3 cm/s Mitral A Point Velocity 120.0 cm/s Mitral E to A Ratio 0.8 LV E' Lateral Velocity 4.0 cm/s Mitral E to LV E' Lateral Ratio 23.3 LV E' Septal Velocity 4.7 cm/s Mitral E to LV E' Septal Ratio 19.9 TR Peak Velocity 238.0 cm/s TR Peak Gradient 22.7 mmHg Right Atrial Pressure 10.0 mmHg Pulmonary Artery Systolic Pressu 32.7 mmHg Right Ventricular Systolic Press 32.7 mmHg PV Peak Velocity 60.2 cm/s PV Peak Gradient 1.4 mmHg FINDINGS LEFT VENTRICLE Normal left ventricular size. Mild concentric left ventricular hypertrophy. The left ventricular systolic function is grossly normal on limited imaging. RIGHT VENTRICLE Normal right ventricular size and systolic function. LEFT ATRIUM The left atrial size is normal. RIGHT ATRIUM The right atrial size is normal. ATRIAL SEPTUM No atrial level shunt is demonstrated by color flow Doppler interrogation. AORTA The aortic root and proximal ascending aorta are normal in size on limited imaging. MITRAL VALVE Mild mitral annular calcification. AORTIC VALVE Aortic valve sclerosis is present. Mild aortic valve regurgitation. TRICUSPID VALVE There is mild tricuspid valve regurgitation. The estimated pulmonary arterial pressure is 32.7 mmHg. PULMONARY VALVE No pulmonary valve regurgitation or stenosis. VESSELS The inferior vena cava is normal in size. PERICARDIUM No pericardial effusion. Marcel Baker MD, FACC, [facility] (Electronically Signed) Final Date:08 August 2017 18:36
--- NOTE | 2017-08-08 19:27 | EKG ---
Date Performed: 08/08/2017 Time Performed: 02:05:27 PTAGE: 62 years EKG: Sinus rhythm POSSIBLE LEFT ATRIAL ENLARGEMENT MODERATE T-WAVE ABNORMALITY, CONSIDER LATERAL ISCHEMIA ABNORMAL ECG PREVIOUS TRACING : 05/08/2017 20.50 When compared to prior EKG,there is some lateral T-wave blanca nges concerning for ischemia DOCTOR: Ana Oglesby Interpretating Date/Time 08/08/2017 19:26:58
[2017-08-08] MEDS ORDERED: MORPHINE SULFATE 4 MG/ML INJ IV PUSH PRN (19:45)
[2017-08-08 22:44] LABS: TROPONIN I LESS THAN 0.02 NG/ML (0.02-0.05)
[2017-08-09] VITALS (7 sets, daily range): BP systolic 128–175; BP diastolic 59–77; PULSE 61–72; RESP 16–22; TEMP 97–97.9; O2SAT 100
[2017-08-09] MEDS: HEPARIN SODIUM - SQ 10,000 UNITS/ML VIAL SQ SCH ×3 (04:00→21:23)
[2017-08-09 06:16] LABS: CHOLESTEROL/ HDL RATIO 3.98 RATIO; HDL CHOLESTEROL 45.4 MG/DL (40.0-60.0)
[2017-08-09] MEDS: INSULIN ASPART SUPPLEMENTAL SCALE SQ SCH ×4 (08:00→21:00)
--- NOTE | 2017-08-09 08:00 | HHI.PR ---
Objective Vital Signs Date Time Temp Pulse Resp B/P (MAP) Pulse Ox O2 Delivery O2 Flow Rate FiO2 08/09/17 04:00 68 08/09/17 04:00 97.7 62 22 128/59 (82) 100 08/09/17 00:00 97.0 61 18 154/67 (96) 100 08/09/17 00:00 71 08/08/17 20:00 97.6 57 23 145/69 (94) 100 08/08/17 20:00 62 08/08/17 19:36 100 08/08/17 16:00 98.0 61 24 147/67 (93) 100 08/08/17 12:00 98.0 57 18 107/67 (80) 100 08/08/17 08:00 98.3 69 24 185/92 (123) 100 I/O 08/08/17 08/08/17 08/08/17 08/09/17 08/09/17 08/09/17 07:00 15:00 23:00 07:00 15:00 23:00 Intake Total 1757 ml Output Total 300 ml 525 ml Balance -300 ml 1232 ml Intake Oral 480 ml IV Total 1277 ml Output Urine Total 300 ml 525 ml # Bowel Movements 0 Result Diagram: 08/08/17 02108/08/17 021 Objective Remarks awake alert nad speech nl good energy Assessment and Plan Assessment and Plan imp mri/a and us neg she had left ica 90% by cta in past 2015 if she is interested this could be repeated and vascular called nothing new ow here neurowise'' i though she should get loop placed and be anticoagulated in 2016 with mult old cva but evidently she was not interested in all that then Jas Long MD Aug 09, 2017 08:00
[2017-08-09] MEDS: SODIUM CHLOR 0.9% 1000 ML INJ 1,000 ML IV SCH (08:34)
[2017-08-09] MEDS: ASPIRIN 81 MG CHEW TAB CHEW SCH (08:58)
[2017-08-09] MEDS: PANTOPRAZOLE SOD 20 MG DELAYED RELEASE TAB PO SCH (08:58)
[2017-08-09] MEDS: TICAGRELOR 90 MG TAB PO SCH ×2 (08:59→21:22)
[2017-08-09] MEDS: ATORVASTATIN 80 MG TAB PO SCH ×2 (08:59→09:00)
[2017-08-09] MEDS: cloNIDine HCL 0.1 MG TAB PO SCH ×3 (08:59→19:21)
[2017-08-09] MEDS: SODIUM CHLORIDE 0.9% FLUSH 10 ML FLUSH IV FLUSH SCH ×2 (09:00→21:24)
[2017-08-09] MEDS: BUDESONIDE-FORMOTEROL 160/4.5 MCG INHALER INH SCH ×2 (09:00→21:00)
--- NOTE | 2017-08-09 14:53 | HHI.PR ---
Subjective Remarks Follow-up on patient with acute encephalopathy, uncontrolled hypertension. Patient seen and examined. States she feels better overall today but reports she is very tired she was woken up every hour last night. She she does report 2 episodes of dizziness while laying in bed earlier today. She denies any headache, new weakness or numbness/tingling. She denies any chest pain, shortness of breath or palpitations. She denies any nausea, vomiting or abdominal pain. Discussed with her findings of significant carotid artery stenosis and possibility of surgical intervention. Patient states she is agreeable to discuss further with vascular surgery. Also brought up with her Dr. Long's recommendation of loop recorder placement however patient is adamant that she does not want to have that done. Discussed with nursing staff , no acute issues noted. Objective Vitals Vital Signs Date Time Temp Pulse Resp B/P (MAP) Pulse Ox O2 Delivery O2 Flow Rate FiO2 08/09/17 12:00 97.8 64 20 135/65 (88) 100 08/09/17 08:00 97.2 67 16 164/76 (105) 100 08/09/17 04:00 68 08/09/17 04:00 97.7 62 22 128/59 (82) 100 08/09/17 00:00 97.0 61 18 154/67 (96) 100 08/09/17 00:00 71 08/08/17 20:00 97.6 57 23 145/69 (94) 100 08/08/17 20:00 62 08/08/17 19:36 100 08/08/17 16:00 98.0 61 24 147/67 (93) 100 I/O 08/08/17 08/08/17 08/08/17 08/09/17 08/09/17 08/09/17 07:00 15:00 23:00 07:00 15:00 23:00 Intake Total 1757 ml Output Total 300 ml 525 ml 1000 ml Balance -300 ml 1232 ml -1000 ml Intake Oral 480 ml IV Total 1277 ml Output Urine Total 300 ml 525 ml 1000 ml # Bowel Movements 0 Result Diagram: 08/08/1720908/08/17209 Imaging Last Impressions Head CT 08/08/17 0155 Signed Impressions: CONCLUSION: 1. Marked lateral ventricular enlargement stable. No evidence of acute hemorrh age or edema. No interval change since December 2015 Chest X-Ray 08/08/17 0155 Signed Impressions: CONCLUSION: Negative examination with numerous healed left-sided rib fractures. Head Magnetic Resonance Angiography 08/08/17 0000 Signed Impressions: CONCLUSION: Negative MRA. Carotid Artery Ultrasound 08/08/17 0000 Signed Impressions: CONCLUSION: There is moderate atherosclerotic plaque seen at the carotid bulb r egions but a hemodynamically significant stenosis is not seen. Brain MRI 08/08/17 Signed Impressions: CONCLUSION: 1. Diffuse increased signal seen throughout the cerebral and pontine white mat ter consistent with widespread demyelination likely from small vessel ischemic change. 2. Age-related atrophy. 3. Suspected encephalomalacia and lacunar infarction at the left thalamus. The re is a small focus of increased signal on the diffusion weighted images which is likely a T2 shine through phenomenon versus a small component of acute lacun ar infarction. 4. Nonspecific small area of intermediate signal seen in the bony silhouette j ust below the pituitary. 5. Multiple areas of low signal seen on yesterday while images which could rep resent the sequela of prior hemorrhage. Objective Remarks GENERAL: This is a well-nourished, well-developed -[place] female patient, in no apparent distress. Awake and alert. Oriented 3. SKIN: No rashes, ecchymoses or lesions. Warm and dry. HEAD: Atraumatic. Normocephalic. EYES: Pupils equal round and reactive. Extraocular motions intact. No scleral icterus. No injection or drainage. ENT: Nose without bleeding or purulent drainage. Airway patent. MMM. NECK: Trachea midline. CARDIOVASCULAR: Regular rate and rhythm without murmurs, gallops, or rubs. RESPIRATORY: Fair air entry. Clear to auscultation. Breath sounds equal bilaterally. No wheezes, rales, or rhonchi. GASTROINTESTINAL: Abdomen soft, non-tender, nondistended. No guarding. +BS. MUSCULOSKELETAL: Extremities without clubbing, cyanosis, or edema. No calf tenderness. NEUROLOGICAL: Awake and alert. Cranial nerves II through XII grossly intact. Motor and sensory grossly within normal limits on the right upper and lower extremity, mild weakness noted in left upper and lower extremity. Able to move all extremities spontaneously. Normal speech. PSYCHIATRIC: Calm and cooperative. Procedures None A/P Assessment and Plan 62-year-old female with past medical history significant for hypertension, diabetes, history of CVA with residual left-sided weakness, history of aortic dissection repair in 1988, CHF, coronary artery disease status post [place] 2010 and cardiac stent placement on Brilinta, rheumatoid arthritis and COPD with ongoing tobaccoism who presents to [facility] ED with altered mental status and near syncopal episode. Acute encephalopathy, improved Syncopal/near syncopal episode Hx of previous CVA x 2 2012 and 2014 with residual left-sided weakness Trops neg Head CT shows prominent ventricles which are stable MRI shows white matter changes, small focus of increased signal possibly representing acute lacunar infarction -also shows nonspecific signal and bony portion of the sella inferior to the pituitary Brain MRA negative Carotid ultrasound shows moderate atherosclerotic plaque, no hemodynamically significant stenosis -Neurology following, appreciate assistance. Per Dr. Long's note, MRI/ MRA negative. Patient had 90% left ICA by CTA in 2014. He is also recommended loop recorder placement and anticoagulation in 2014. Discussed with patient and she is agreeable to speak with vascular surgery about possible surgical intervention. Will order repeat neck CTA. Passed ST swallow eval ECHO EF at 55% -Vascular surgery consulted, appreciate assistance -Neurochecks -Consult stroke navigator -ASA 81mg daily and Lipitor -Bedside swallow evaluation -OT recommends home with home health OT. PT recommends outpatient PT if patient willing. -Monitor on cardiac telemetry -Fall/seizure/aspiration precautions Hypertension, uncontrolled at ED presentation -Continue on Clonidine per her home regimen -Continue to monitor BP and adjust treatment accordingly Diabetes HgbA1c 7.0 -Accu-Cheks and insulin sliding scale -Continue on diabetic diet CAD s/p [place] with subsequent stent implant 2010 Patient has no complaints of chest pain -Continue patient on home dose of Brilinta and ASA daily -monitor CHF, diastolic dysfunction, not in acute exacerbation -Patient refusing Coreg and spironolactone she says she does not take those medications at home. Medications discontinued. -Monitor for evidence of fluid overload COPD with ongoing tobaccoism, not in acute exacerbation -Discussed smoking cessation, patient states that she is not interested in quitting smoking -Continue on Symbicort -Duonebs prn -Supplemental oxygen as needed to maintain O2 sats greater than 92% -Continue to monitor respiratory function Hypokalemia -Oral repletion ordered but patient refused -will repeat BMP in a.m. DVT prophylaxis -Heparin sq Discharge Planning Not ready for discharge. Discharge pending neurology clearance and vascular surgery assessment/recommendations. Radha Sanchez Aug 09, 2017 14:53
[2017-08-09 16:12] LABS: BICARBONATE 24.4 MEQ/L (21.0-32.0); CALCIUM 8.3 MG/DL (8.5-10.1); CREATININE 0.97 MG/DL (0.50-1.00)
--- NOTE | 2017-08-09 16:49 | PD.VS.CON ---
History of Present Illness Chief Complaint: carotid stenosis Consult Requested by: Medical service History of Present Illness 62 yo female admitted with AMS ? encephalopathy. Has history of CVA but no new focal neuro findings. Does have h/o CTA neck in 2015 that showed L ICA stenosis. Asked to re-evaluate. Past/Family/Social History Past Medical History DM CAD CVA GERD HTN XOL Social History NC Family History NC Home Medications Reported Medications Fluticasone-Salmeterol Inh (Advair Diskus Inh) 250-50 Mcg/Blist Aer, 1 PUFF INH BID, #1 INHALER 0 Refills Rinse mouth after use. 08/08/17 Nystatin-Triamcinolone (Nystatin-Triamcinolone) 100,000-0.1 Unit/Gm Oint, 1 APPLIC TOPICAL DAILY for Infection, #15 GM 0 Refills 08/08/17 Metronidazole Vaginal Gel (Vandazole Vaginal Gel) 0.75 % Gel, 1 APPL VAGINAL HS for Infection, #1 TUBE 0 Refills 08/08/17 Fluconazole (Fluconazole) 200 Mg Tab, 200 MG PO BID for Infection, TAB 0 Refills 08/08/17 Aspirin (Aspirin) 81 Mg Chew, 81 MG CHEW DAILY, TAB 0 Refills 08/08/17 Lactic Acid (Ammonium Lactate) (Ammonium Lactate) 12% Lotn, 1 APPLIC TOPICAL TID , #225 ML 0 Refills 08/08/17 Ticagrelor (Brilinta) 90 Mg Tab, 90 MG PO BID for Blood Clot Prevention, #60 TAB 0 Refills 10/30/16 Omeprazole (Omeprazole) 20 Mg Tab, 20 MG PO DAILY, #30 TAB 0 Refills 10/30/16 Glipizide (Glipizide) 5 Mg Tab, 5 MG PO DAILY for Blood Sugar Management, #30 TAB 0 Refills Take 30 minutes before a meal 10/30/16 Clonidine (Clonidine) 0.1 Mg Tab, 0.1 MG PO TID for Blood Pressure Management, # 60 TAB 0 Refills 10/30/16 Discontinued Reported Medications Atorvastatin (Lipitor) 80 Mg Tab, 80 MG PO DAILY for Cholesterol Management, # 30 TAB 0 Refills 10/30/16 Spironolactone (Spironolactone) 25 Mg Tab, 25 MG PO BID, #60 TAB 0 Refills 10/30/16 Metformin (Metformin) 500 Mg Tab, 500 MG PO BID for Blood Sugar Management, #60 TAB 0 Refills With meals 10/30/16 Carvedilol (Coreg) 25 Mg Tab, 25 MG PO BID, #60 TAB 0 Refills 10/30/16 Amlodipine (Amlodipine) 10 Mg Tab, 10 MG PO DAILY for Blood Pressure Management , #30 TAB 0 Refills 10/30/16 Losartan (Losartan) 50 Mg Tab, 50 MG PO DAILY for Blood Pressure Management, # 30 TAB 0 Refills 10/30/16 Discontinued Scripts Ljxzmrqk-Moowmiajzqducid-Jeztfghpd Liq (Magic Mouthwash Adult Liq) 120 Ml Susp, 5 ML SWISH-SWAL ACHS for Mouth sores, #120 ML 0 Refills Each 5mL contains: Nystatin 200,000units, Diphenhydramine 4.25mg, Viscous Lidocaine 10mg, Lloyd syrup 0.8 mL Prov:Zena Hartman 10/30/16 Coded Allergies: ampicillin (Unverified Allergy, Severe, Anaphylaxis, 05/08/17) penicillin G (Unverified Allergy, Severe, TONGUE SWELLS BREATHING ISSUES, 05/08/17) codeine (Unverified Allergy, Intermediate, RASH, 05/08/17) latex (Unverified Allergy, Intermediate, RASH,HIVES, 05/08/17) lisinopril (Unverified Allergy, Mild, Cough, 05/08/17) Review of Systems ROS Limitations: Altered Mental Status Physical Exam Vitals/I&O Date Time Temp Pulse Resp B/P (MAP) Pulse Ox O2 Delivery O2 Flow Rate FiO2 08/09/17 15:02 140/60 (86) 08/09/17 15:02 68 08/09/17 12:00 97.8 64 20 135/65 (88) 100 08/09/17 08:00 97.2 67 16 164/76 (105) 100 08/09/17 04:00 68 08/09/17 04:00 97.7 62 22 128/59 (82) 100 08/09/17 00:00 97.0 61 18 154/67 (96) 100 08/09/17 00:00 71 08/08/17 20:00 97.6 57 23 145/69 (94) 100 08/08/17 20:00 62 08/08/17 19:36 100 08/09/17 08/09/17 08/09/17 07:00 15:00 23:00 Intake Total 1757 ml Output Total 525 ml 1000 ml Balance 1232 ml -1000 ml Neuro: slightly somnolent, no distress L UE and L LE slightly weaker than R HEENT: NC/AT; anicteric sclera Neck: no JVD, trachea midline Heart: reg rate Lungs: clear Laboratory Tests Test 08/08/17 22:05 08/09/17 04:51 08/09/17 15:28 Total Creatine Kinase 45 Troponin I LESS THAN 0.02 Triglycerides Level 76 Cholesterol Level 181 LDL Cholesterol 120 HDL Cholesterol 45.4 Cholesterol/HDL Ratio 3.98 Blood Urea Nitrogen 16 Creatinine 0.97 Random Glucose 191 Calcium Level 8.3 Sodium Level 139 Potassium Level 3.7 Chloride Level 106 Carbon Dioxide Level 24.4 Anion Gap 9 Estimat Glomerular Filtration Rate 71 Last [address] 08/08/17 0155 Signed Impressions: CONCLUSION: 1. Marked lateral ventricular enlargement stable. No evidence of acute hemorrh age or edema. No interval change since December 2015 Chest X-Ray 08/08/17 0155 Signed Impressions: CONCLUSION: Negative examination with numerous healed left-sided rib fractures. Head Magnetic Resonance Angiography 08/08/17 0000 Signed Impressions: CONCLUSION: Negative MRA. Carotid Artery Ultrasound 08/08/17 0000 Signed Impressions: CONCLUSION: There is moderate atherosclerotic plaque seen at the carotid bulb r egions but a hemodynamically significant stenosis is not seen. Brain MRI 08/08/17 0000 Signed Impressions: CONCLUSION: 1. Diffuse increased signal seen throughout the cerebral and pontine white mat ter consistent with widespread demyelination likely from small vessel ischemic change. 2. Age-related atrophy. 3. Suspected encephalomalacia and lacunar infarction at the left thalamus. The re is a small focus of increased signal on the diffusion weighted images which is likely a T2 shine through phenomenon versus a small component of acute lacun ar infarction. 4. Nonspecific small area of intermediate signal seen in the bony silhouette j ust below the pituitary. 5. Multiple areas of low signal seen on yesterday while images which could rep resent the sequela of prior hemorrhage. Assessment and Plan Plan Asymptomatic L ICA stenosis, reviewed CTA from a few years ago. Discussed with patient - propose no intervention for asymptomatic carotid stenosis and patient agrees. Should be on statin and antiplatelet therapy. Can f/u prn Feezor,Angel J MD Aug 09, 2017 16:49
[2017-08-09] MEDS ORDERED: IOHEXOL 350 MG/ML 10 ML VIAL (for RAD DIAG) IVCONTRAST ONE (18:33)
--- NOTE | 2017-08-09 19:49 | RADRPT ---
EXAM DATE: 08/09/2017 7:26 PM EDT AGE/SEX: 62 years / Female INDICATIONS: Occlusion, general weakness. CLINICAL DATA: This is the patient's initial encounter. Patient reports that signs and symptoms have been present for 1 day and indicates a pain score of 0/10. MEDICAL/SURGICAL HISTORY: None. None. RADIATION DOSE: 10.59 CTDI (mGy) COMPARISON: No prior exams available for comparison. TECHNIQUE: Volumetric scanning was performed using a multirow detector CT scanner during bolus infus ion of 75 ml Omnipaque 350 (iohexol) nonionic water-soluble contrast as a single exam dose. The da ta was postprocessed with a variety of visualization algorithms including full-volume maximum intensi ty projection, multiplanar sliding thin-slab reformation, curved-planar reformation, and surface-rend ering techniques. Using automated exposure control and adjustment of the mA and/or kV according to p atient size, radiation dose was kept as low as reasonably achievable to obtain optimal diagnostic dorcas lity images. DICOM format image data is available electronically for review and comparison. Elevated flow velocities and ICA/CCA ratios have been found to correlate with increased degrees of ve ssel stenosis, calculated as percentage of diameter relative to a normal segment of distal ICA/CCA. FINDINGS: No abnormality is identified within the lung apices. There is normal origin of vessels from the arch without evidence of proximal stenosis. Vertebral arteries are codominant. There is thyromegaly with e nlargement the isthmus and possible nodule in the left lobe of thyroid. Ultrasound examination is rec ommended if clinically indicated. The ventricles are enlarged out of proportion to the sulcal atrophy . In addition the third ventricle is somewhat prominent. Clinical correlation would be helpful in reg ards to the possibility of normal pressure hydrocephalus. Examination of the right common carotid artery demonstrates the vessel to be widely patent. There is 40-50% stenosis at the origin of the right internal carotid artery with calcific plaque present. More distally the cervical internal carotid artery is intact. Examination of the left common carotid artery demonstrates the vessel to be widely patent. There is g reater than 90% stenosis at the origin of the left internal carotid artery with extensive calcific pl aque present. More distally the cervical internal carotid artery is intact. Percent stenosis is calculated using the diameter of the stenotic region over the diameter of the nor mal distal internal carotid artery. CONCLUSION: Greater than 90% stenosis at the origin of the left internal carotid artery with 40-50% stenosis on t he right. Possible normal pressure hydrocephalus. Correlation with clinical findings is necessary. Thyromegaly with possible nodule on the left. Ultrasound examination is recommended if clinically ind icated. Electronically signed by: Jas Payne MD 08/09/2017 7:48 PM EDT
[2017-08-10] VITALS (9 sets, daily range): BP systolic 167–192; BP diastolic 75–84; PULSE 57–74; RESP 17–22; TEMP 97.6–98.1; O2SAT 100
[2017-08-10] MEDS: HEPARIN SODIUM - SQ 10,000 UNITS/ML VIAL SQ SCH ×3 (04:06→21:33)
[2017-08-10] MEDS: INSULIN ASPART SUPPLEMENTAL SCALE SQ SCH ×4 (08:00→21:33)
[2017-08-10 08:52] LABS: BICARBONATE 24.2 MEQ/L (21.0-32.0); CALCIUM 8.6 MG/DL (8.5-10.1); CREATININE 0.95 MG/DL (0.50-1.00)
[2017-08-10] MEDS: ATORVASTATIN 80 MG TAB PO SCH (09:00)
[2017-08-10] MEDS: TICAGRELOR 90 MG TAB PO SCH ×2 (10:00→21:33)
[2017-08-10] MEDS: PANTOPRAZOLE SOD 20 MG DELAYED RELEASE TAB PO SCH (10:00)
[2017-08-10] MEDS: cloNIDine HCL 0.1 MG TAB PO SCH (10:01)
[2017-08-10] MEDS: ASPIRIN 81 MG CHEW TAB CHEW SCH (10:01)
[2017-08-10] MEDS: SODIUM CHLORIDE 0.9% FLUSH 10 ML FLUSH IV FLUSH SCH ×2 (10:03→21:33)
[2017-08-10] MEDS: BUDESONIDE-FORMOTEROL 160/4.5 MCG INHALER INH SCH ×2 (11:42→21:34)
--- NOTE | 2017-08-10 13:20 | HHI.PR ---
Subjective Remarks Pressure noted to be elevated in the 190s. The patient denies headache, nausea, vomiting, chest pain or shortness of breath. Objective Vitals Vital Signs Date Time Temp Pulse Resp B/P (MAP) Pulse Ox O2 Delivery O2 Flow Rate FiO2 08/10/17 08:32 98.0 57 18 184/83 (116) 100 08/10/17 08:00 66 08/10/17 04:00 64 08/10/17 04:00 97.8 60 17 167/75 (105) 100 08/10/17 00:00 98.1 65 17 179/78 (111) 100 08/10/17 00:00 59 08/09/17 20:00 97.6 64 18 175/77 (109) 100 08/09/17 20:00 65 08/09/17 16:00 97.9 72 20 140/64 (89) 100 08/09/17 15:02 140/60 (86) 08/09/17 15:02 68 I/O 08/09/17 08/09/17 08/09/17 08/10/17 08/10/17 08/10/17 07:00 15:00 23:00 07:00 15:00 23:00 Intake Total 1757 ml 1200 ml 222 ml Output Total 525 ml 1000 ml 600 ml 300 ml Balance 1232 ml -1000 ml 600 ml -78 ml Intake Oral 480 ml 1200 ml 222 ml IV Total 1277 ml Output Urine Total 525 ml 1000 ml 600 ml 300 ml # Voids 1 # Bowel Movements 2 0 Result Diagram: 08/08/17 0210 08/10/17 0748 Imaging Last Impressions Neck CTA 08/09/17 0000 Signed Impressions: CONCLUSION: Greater than 90% stenosis at the origin of the left internal carotid artery wit h 40-50% stenosis on the right. Possible normal pressure hydrocephalus. Correlation with clinical findings is n ecessary. Thyromegaly with possible nodule on the left. Ultrasound examination is recomme nded if clinically indicated. Head CT 08/08/17 0155 Signed Impressions: CONCLUSION: 1. Marked lateral ventricular enlargement stable. No evidence of acute hemorrh age or edema. No interval change since December 2015 Chest X-Ray 08/08/17 015 Signed Impressions: CONCLUSION: Negative examination with numerous healed left-sided rib fractures. Head Magnetic Resonance Angiography 08/08/17 0000 Signed Impressions: CONCLUSION: Negative MRA. Carotid Artery Ultrasound 08/08/17 0000 Signed Impressions: CONCLUSION: There is moderate atherosclerotic plaque seen at the carotid bulb r egions but a hemodynamically significant stenosis is not seen. Brain MRI 08/08/17 0000 Signed Impressions: CONCLUSION: 1. Diffuse increased signal seen throughout the cerebral and pontine white mat ter consistent with widespread demyelination likely from small vessel ischemic change. 2. Age-related atrophy. 3. Suspected encephalomalacia and lacunar infarction at the left thalamus. The re is a small focus of increased signal on the diffusion weighted images which is likely a T2 shine through phenomenon versus a small component of acute lacun ar infarction. 4. Nonspecific small area of intermediate signal seen in the bony silhouette j ust below the pituitary. 5. Multiple areas of low signal seen on yesterday while images which could rep resent the sequela of prior hemorrhage. Objective Remarks NAD, AAO 3 Left hemiparesis. Clear lungs bilaterally. Abdomen soft, nontender nondistended. No edema lower extremities. Procedures None A/P Assessment and Plan 62-year-old female with past medical history significant for hypertension, diabetes, history of CVA with residual left-sided weakness, history of aortic dissection repair in 1988, CHF, coronary artery disease status post [place] 2010 and cardiac stent placement on Brilinta, rheumatoid arthritis and COPD with ongoing tobaccoism who presents to [facility] ED with altered mental status and near syncopal episode. Acute encephalopathy, improved Syncopal/near syncopal episode Left Carotid Stenosis. Hx of previous CVA x 2 2012 and 2014 with residual left-sided weakness Trops neg Head CT shows prominent ventricles which are stable MRI shows white matter changes, small focus of increased signal possibly representing acute lacunar infarction -also shows nonspecific signal and bony portion of the sella inferior to the pituitary Brain MRA negative Carotid ultrasound shows moderate atherosclerotic plaque, no hemodynamically significant stenosis -Neurology following, appreciate assistance. Per Dr. Long's note, MRI/ MRA negative. Patient had 90% left ICA by CTA in 2014. He is also recommended loop recorder placement and anticoagulation in 2014. Will order repeat neck CTA. Passed ST swallow eval ECHO EF at 55% -Vascular surgery consulted, appreciate assistance -Neurochecks -Consult stroke navigator -ASA 81mg daily and Lipitor -Bedside swallow evaluation -OT recommends home with home health OT. PT recommends outpatient PT if patient willing. -Monitor on cardiac telemetry -Fall/seizure/aspiration precautions 08/10 next CTA shows greater than 90% stenosis at the origin of the left internal carotid artery with 40-50% stenosis on the right. He also mentions thyromegaly with possible nodule of the left. The patient could have an ultrasound of the thyroid as an outpatient. Hypertension, uncontrolled at ED presentation -Continue on Clonidine per her home regimen -Continue to monitor BP and adjust treatment accordingly. - 08/10 BP still severely elevated. I will increase clonidine dose to 0.2 mg p.o. 3 times daily. I will also start the patient on amlodipine 5 mg p.o. daily. Continue to monitor vital signs. Diabetes HgbA1c 7.0 -Accu-Cheks and insulin sliding scale -Continue on diabetic diet CAD s/p [place] with subsequent stent implant 2010 Patient has no complaints of chest pain -Continue patient on home dose of Brilinta and ASA daily -monitor CHF, diastolic dysfunction, not in acute exacerbation -Patient refusing Coreg and spironolactone she says she does not take those medications at home. Medications discontinued. -Monitor for evidence of fluid overload COPD with ongoing tobaccoism, not in acute exacerbation -Discussed smoking cessation, patient states that she is not interested in quitting smoking -Continue on Symbicort -Duonebs prn -Supplemental oxygen as needed to maintain O2 sats greater than 92% -Continue to monitor respiratory function Hypokalemia -Potassium within normal range. Continue to monitor BMP. DVT prophylaxis -Heparin sq Discharge Planning Discharge once blood pressure controlled. Dev Barton MD Aug 10, 2017 13:19
[2017-08-10] MEDS: cloNIDine HCL 0.2 MG TAB PO SCH (18:03)
[2017-08-11] VITALS (9 sets, daily range): BP systolic 135–206; BP diastolic 63–93; PULSE 57–71; RESP 19–22; TEMP 97.7–98.7; O2SAT 99–100
[2017-08-11] MEDS: HEPARIN SODIUM - SQ 10,000 UNITS/ML VIAL SQ SCH ×3 (03:24→21:18)
--- NOTE | 2017-08-11 08:54 | HHI.PR ---
Subjective Remarks Blood pressure was completely controlled however blood pressure is trending up now. Started hydralazine and amlodipine. Patient however says she feels good she does not have any headaches, chest pain, change in vision or new motor deficit. No fever or chills. No nausea or vomiting. No pain Objective Vitals Vital Signs Date Time Temp Pulse Resp B/P (MAP) Pulse Ox O2 Delivery O2 Flow Rate FiO2 08/11/17 04:00 69 08/11/17 04:00 98.1 64 22 135/63 (87) 100 08/11/17 00:00 97.9 65 20 135/69 (91) 100 08/11/17 00:00 67 08/10/17 20:00 97.8 74 22 175/78 (110) 100 08/10/17 20:00 60 08/10/17 16:14 97.8 60 18 178/80 (112) 100 08/10/17 16:00 72 08/10/17 12:14 97.6 59 18 192/84 (120) 100 08/10/17 12:00 57 I/O 08/10/17 08/10/17 08/10/17 08/11/17 08/11/17 08/11/17 07:00 15:00 23:00 07:00 15:00 23:00 Intake Total 222 ml 380 ml 595 ml Output Total 300 ml 2800 ml 400 ml Balance -78 ml -2420 ml 195 ml Intake Oral 222 ml 380 ml 595 ml Output Urine Total 300 ml 2800 ml 400 ml # Voids 1 # Bowel Movements 0 0 Result Diagram: 08/08/17 0210 08/10/17 0748 Imaging Last Impressions Neck CTA 08/09/17 0000 Signed Impressions: CONCLUSION: Greater than 90% stenosis at the origin of the left internal carotid artery wit h 40-50% stenosis on the right. Possible normal pressure hydrocephalus. Correlation with clinical findings is n ecessary. Thyromegaly with possible nodule on the left. Ultrasound examination is recomme nded if clinically indicated. Head CT 08/08/17 0155 Signed Impressions: CONCLUSION: 1. Marked lateral ventricular enlargement stable. No evidence of acute hemorrh age or edema. No interval change since December 2015 Chest X-Ray 08/08/17154 Signed Impressions: CONCLUSION: Negative examination with numerous healed left-sided rib fractures. Head Magnetic Resonance Angiography 08/08/17 Signed Impressions: CONCLUSION: Negative MRA. Carotid Artery Ultrasound 08/08/17 Signed Impressions: CONCLUSION: There is moderate atherosclerotic plaque seen at the carotid bulb r egions but a hemodynamically significant stenosis is not seen. Brain MRI 08/08/17 0000 Signed Impressions: CONCLUSION: 1. Diffuse increased signal seen throughout the cerebral and pontine white mat ter consistent with widespread demyelination likely from small vessel ischemic change. 2. Age-related atrophy. 3. Suspected encephalomalacia and lacunar infarction at the left thalamus. The re is a small focus of increased signal on the diffusion weighted images which is likely a T2 shine through phenomenon versus a small component of acute lacun ar infarction. 4. Nonspecific small area of intermediate signal seen in the bony silhouette j ust below the pituitary. 5. Multiple areas of low signal seen on yesterday while images which could rep resent the sequela of prior hemorrhage. Objective Remarks GENERAL: 62 yo F, appears in nad. SKIN: Warm and dry. HEAD: Atraumatic. Normocephalic. EYES: Pupils equal and round. No scleral icterus. No injection or drainage. GASTROINTESTINAL: Abdomen soft, non-tender, nondistended. Hepatic and splenic margins not palpable. MUSCULOSKELETAL: Extremities without clubbing, cyanosis, or edema. No obvious deformities. NEUROLOGICAL: Awake and alert. No obvious cranial nerve deficits. Left hemiparesis. Normal speech. PSYCHIATRIC: Appropriate mood and affect; insight and judgment normal. Procedures None A/P Assessment and Plan 62-year-old female with past medical history significant for hypertension, diabetes, history of CVA with residual left-sided weakness, history of aortic dissection repair in 1988, CHF, coronary artery disease status post [place] 2010 and cardiac stent placement on Brilinta, rheumatoid arthritis and COPD with ongoing tobaccoism who presents to [facility] ED with altered mental status and near syncopal episode. Acute encephalopathy, improved Syncopal/near syncopal episode Left Carotid Stenosis. Hx of previous CVA x 2 2012 and 2014 with residual left-sided weakness Trops neg Head CT shows prominent ventricles which are stable MRI shows white matter changes, small focus of increased signal possibly representing acute lacunar infarction -also shows nonspecific signal and bony portion of the sella inferior to the pituitary Brain MRA negative Carotid ultrasound shows moderate atherosclerotic plaque, no hemodynamically significant stenosis Neurology following, appreciate assistance. Per Dr. Long's note, MRI/MRA negative. Patient had 90% left ICA by CTA in 2014. He is also recommended loop recorder placement and anticoagulation in 2014. Will order repeat neck CTA. Passed ST swallow eval ECHO EF at 55% Vascular surgery consulted, appreciate assistance Neurochecks Consult stroke navigator ASA 81mg daily and Lipitor Bedside swallow evaluation OT recommends home with home health OT. PT recommends outpatient PT if patient willing. Monitor on cardiac telemetry Fall/seizure/aspiration precautions 08/10 next CTA shows greater than 90% stenosis at the origin of the left internal carotid artery with 40-50% stenosis on the right. He also mentions thyromegaly with possible nodule of the left. The patient could have an ultrasound of the thyroid as an outpatient. Hypertension, uncontrolled Continue on Clonidine per her home regimen Continue to monitor BP and adjust treatment accordingly. 08/10 BP still severely elevated. I will increase clonidine dose to 0.2 mg p.o. 3 times daily. I will also start the patient on amlodipine 5 mg p.o. daily. Continue to monitor vital signs. 08/11 blood pressure is still severely elevated. Add hydralazine p.o. and amlodipine. Monitor blood pressure patient can be discharged if systolic blood pressure less than 160 Diabetes mellitus fairly well controlled with HgbA1c 7.0 Accu-Cheks and insulin sliding scale Continue on diabetic diet CAD s/p PR with subsequent stent implant 2010 Patient has no complaints of chest pain Continue patient on home dose of Brilinta and ASA daily monitor CHF, diastolic dysfunction, not in acute exacerbation Patient refusing Coreg and spironolactone she says she does not take those medications at home. Medications discontinued. Monitor for evidence of fluid overload COPD with ongoing tobaccoism, not in acute exacerbation Discussed smoking cessation, patient states that she is not interested in quitting smoking Continue on Symbicort Duonebs prn Supplemental oxygen as needed to maintain O2 sats greater than 92% Continue to monitor respiratory function Hypokalemia -Potassium within normal range. Continue to monitor BMP. DVT prophylaxis -Heparin sq Discharge Planning Discharge once blood pressure controlled. Jessica Recinos MD Aug 11, 2017 08:54
[2017-08-11] MEDS: ATORVASTATIN 80 MG TAB PO SCH (09:00)
[2017-08-11] MEDS ORDERED: ATOR80TA45 PO (09:01)
--- NOTE | 2017-08-11 09:02 | HHI.FF ---
Face to Face Verification Diagnosis: (1) Left-sided weakness (2) Hypokalemia (3) Diabetes (4) Acute renal insufficiency (5) CAD (coronary artery disease) Physical Therapy Order: Evaluate and Treat Occupational Therapy Order: Evaluate and Treat Home Health Nursing Order: Medical education Medication education-adverse effect Nursing assessment with vital signs I have seen patient Twyla Conley on 08/11/17. My clinical findings support the need for the requested home health care services because: Ltd mobility - disease progression I certify that my clinical findings support that this patient is homebound because: Post-op weakness Jessica Recinos MD Aug 11, 2017 09:02
--- NOTE | 2017-08-11 09:02 | HHI.DS ---
Discharge Summary Admission Date Aug 09, 2017 at 09:57 Admitting Diagnosis DEBILITY, GEN WEAKNESS, UNABLE TO AMBULATE Procedures None Brief History - From Admission This is a 62-year-old female with past medical history significant for hypertension, diabetes, history of CVA with residual left-sided weakness, history of aortic dissection repair in 1988, CHF, coronary artery disease status post [place] 2010 and cardiac stent placement on Brilinta, rheumatoid arthritis and COPD with ongoing tobaccoism who presents to [facility] ED with altered mental status and near syncopal episode. Patient states she has been in her usual state of health and denies any recent illness. She states that last night she went to bed around 11:00. At some point she woke up and when she went to stand she became extremely dizzy and fell back on the bed. She reports associated headache, nausea and vomiting and shortness of breath. She denies any chest pain or palpitations. She denies any numbness, tingling or weakness. She states that she can hear her family talking about her but she was unable to respond. She denies biting her tongue but does report urinary incontinence. She does not have a history of seizure disorders. In the ED, patient was found to have uncontrolled hypertension with blood pressure of 203/ 81. CT the head shows marked lateral ventricular enlargement which is stable from previous exam, no evidence of acute hemorrhage or edema. EKG revealed normal sinus rhythm and no evidence of acute ischemia. Initial troponin was negative. CBC is unremarkable and electrolytes within normal limits. Chest x- ray revealed healed left-sided rib fractures otherwise no acute cardiopulmonary process identified. CBC/BMP: 08/08/17 0210 08/10/17 0748 Significant Findings Laboratory Tests Test 08/08/17 14:32 08/08/17 22:05 08/09/17 04:51 08/09/17 15:28 Ammonia LESS THAN 10 MCMOL/L Troponin I LESS THAN 0.02 NG/ML LDL Cholesterol 120 MG/DL (0-99) Random Glucose 191 MG/DL (74-106) Calcium Level 8.3 MG/DL (8.5-10.1) Estimat Glomerular Filtration Rate 71 ML/MIN (>89) Test 08/10/17 07:48 Blood Urea Nitrogen 19 MG/DL (7-18) Random Glucose 165 MG/DL (74-106) Estimat Glomerular Filtration Rate 72 ML/MIN (>89) PE at Discharge GENERAL: 62 yo F, appears in nad. SKIN: Warm and dry. HEAD: Atraumatic. Normocephalic. EYES: Pupils equal and round. No scleral icterus. No injection or drainage. GASTROINTESTINAL: Abdomen soft, non-tender, nondistended. Hepatic and splenic margins not palpable. MUSCULOSKELETAL: Extremities without clubbing, cyanosis, or edema. No obvious deformities. NEUROLOGICAL: Awake and alert. No obvious cranial nerve deficits. Left hemiparesis. Normal speech. PSYCHIATRIC: Appropriate mood and affect; insight and judgment normal. Pt Condition on Discharge: Stable Discharge Disposition: Disch w/ Home Health Serv Discharge Instructions DIET: Follow Instructions for: Heart Healthy Diet, Diabetic Diet Activities you can perform: Regular-No Restrictions Follow up Referrals: PCP Follow-up - 2-3 Days New Medications: Atorvastatin (Atorvastatin) 80 Mg Tab 80 MG PO DAILY for Cholesterol Management, #30 TAB Continued Medications: Aspirin (Aspirin) 81 Mg Chew 81 MG CHEW DAILY, TAB 0 Refills Clonidine (Clonidine) 0.1 Mg Tab 0.1 MG PO TID for Blood Pressure Management, #60 TAB 0 Refills Fluconazole (Fluconazole) 200 Mg Tab 200 MG PO BID for Infection, TAB 0 Refills Fluticasone-Salmeterol Inh (Advair Diskus Inh) 250-50 Mcg/Blist Aer 1 PUFF INH BID, #1 INHALER 0 Refills Rinse mouth after use. Glipizide (Glipizide) 5 Mg Tab 5 MG PO DAILY for Blood Sugar Management, #30 TAB 0 Refills Take 30 minutes before a meal Lactic Acid (Ammonium Lactate) (Ammonium Lactate) 12% Lotn 1 APPLIC TOPICAL TID, #225 ML 0 Refills Metronidazole Vaginal Gel (Vandazole Vaginal Gel) 0.75 % Gel 1 APPL VAGINAL HS for Infection, #1 TUBE 0 Refills Nystatin-Triamcinolone (Nystatin-Triamcinolone) 100,000-0.1 Unit/Gm Oint 1 APPLIC TOPICAL DAILY for Infection, #15 GM 0 Refills Omeprazole (Omeprazole) 20 Mg Tab 20 MG PO DAILY, #30 TAB 0 Refills Ticagrelor (Brilinta) 90 Mg Tab 90 MG PO BID for Blood Clot Prevention, #60 TAB 0 Refills Jessica Recinos MD Aug 11, 2017 09:02
[2017-08-11] MEDS: cloNIDine HCL 0.2 MG TAB PO SCH ×3 (09:13→18:04)
[2017-08-11] MEDS: PANTOPRAZOLE SOD 20 MG DELAYED RELEASE TAB PO SCH (09:13)
[2017-08-11] MEDS: INSULIN ASPART SUPPLEMENTAL SCALE SQ SCH ×4 (09:13→21:18)
[2017-08-11] MEDS: TICAGRELOR 90 MG TAB PO SCH ×2 (09:13→21:18)
[2017-08-11] MEDS: ASPIRIN 81 MG CHEW TAB CHEW SCH (09:14)
[2017-08-11] MEDS: SODIUM CHLORIDE 0.9% FLUSH 10 ML FLUSH IV FLUSH SCH ×2 (09:14→21:18)
[2017-08-11] MEDS: BUDESONIDE-FORMOTEROL 160/4.5 MCG INHALER INH SCH ×2 (09:14→21:00)
[2017-08-11] MEDS ORDERED: CLON.2 PO (11:09)
[2017-08-11] MEDS ORDERED: AMLO5TAB2 PO (11:11)
[2017-08-11] MEDS ORDERED: amLODIPine BESYLATE 5 MG TAB PO ONE (11:15)
[2017-08-11] MEDS ORDERED: hydrALAZINE HCL 20 MG/ML VIAL IV PUSH ONE (15:30)
[2017-08-11] MEDS ORDERED: hydrALAZINE HCL 10 MG TAB PO PRN (15:30)
[2017-08-11] MEDS ORDERED: hydrALAZINE HCL 20 MG/ML VIAL IV PUSH PRN (15:30)
[2017-08-11] MEDS: hydrALAZINE HCL 25 MG TAB PO SCH (21:18)
[2017-08-12] VITALS: BP 152/69; PULSE 66; PULSE 67; RESP 22; TEMP 97.2; O2SAT 100
[2017-08-12 04:00] VITALS: BP 129/61; PULSE 64; PULSE 73; RESP 20; TEMP 97.7; O2SAT 100
[2017-08-12] MEDS: HEPARIN SODIUM - SQ 10,000 UNITS/ML VIAL SQ SCH ×2 (04:00→13:35)
[2017-08-12] MEDS: hydrALAZINE HCL 25 MG TAB PO SCH ×2 (05:53→13:34)
[2017-08-12 08:00] VITALS: BP 157/72; PULSE 61; PULSE 62; PULSE 79; RESP 20; TEMP 97.9; O2SAT 100
--- NOTE | 2017-08-12 08:10 | HHI.PR ---
Subjective Remarks Patient seen and examined this morning, their vitals are stable and the patient is afebrile. BP controlled this morning. Denies CP or SOB. Wants to go home. Feels like everytime she goes home she feels like she ends up staying. Objective Vital Signs Date Time Temp Pulse Resp B/P (MAP) Pulse Ox O2 Delivery O2 Flow Rate FiO2 08/12/17 04:00 97.7 64 20 129/61 (83) 100 08/12/17 04:00 Room Air 08/12/17 04:00 73 08/12/17 00:00 66 08/12/17 00:00 97.2 67 22 152/69 (96) 100 08/12/17 00:00 Room Air 08/11/17 20:00 97.7 69 20 150/68 (95) 99 08/11/17 20:00 Room Air 08/11/17 20:00 69 08/11/17 16:14 98.7 71 19 157/87 (110) 100 08/11/17 15:10 206/93 (130) 08/11/17 15:10 181/82 (115) 08/11/17 12:14 97.8 62 20 192/78 (116) 100 08/11/17 12:00 65 08/11/17 08:14 98.1 57 20 175/78 (110) 100 I/O 08/11/17 08/11/17 08/11/17 08/12/17 08/12/17 08/12/17 07:00 15:00 23:00 07:00 15:00 23:00 Intake Total 595 ml 420 ml 480 ml Output Total 400 ml 2300 ml 800 ml Balance 195 ml -1880 ml -320 ml Intake Oral 595 ml 420 ml 480 ml Output Urine Total 400 ml 2300 ml 800 ml # Bowel Movements 0 Result Diagram: 08/08/17 0210 08/10/17 0748 Imaging Last Impressions Neck CTA 08/09/17 0000 Signed Impressions: CONCLUSION: Greater than 90% stenosis at the origin of the left internal carotid artery wit h 40-50% stenosis on the right. Possible normal pressure hydrocephalus. Correlation with clinical findings is n ecessary. Thyromegaly with possible nodule on the left. Ultrasound examination is recomme nded if clinically indicated. Head CT 08/08/17 0155 Signed Impressions: CONCLUSION: 1. Marked lateral ventricular enlargement stable. No evidence of acute hemorrh age or edema. No interval change since December 2015 Chest X-Ray 08/08/17 0155 Signed Impressions: CONCLUSION: Negative examination with numerous healed left-sided rib fractures. Head Magnetic Resonance Angiography 08/08/17 0000 Signed Impressions: CONCLUSION: Negative MRA. Carotid Artery Ultrasound 08/08/17 0000 Signed Impressions: CONCLUSION: There is moderate atherosclerotic plaque seen at the carotid bulb r egions but a hemodynamically significant stenosis is not seen. Brain MRI 08/08/17 0000 Signed Impressions: CONCLUSION: 1. Diffuse increased signal seen throughout the cerebral and pontine white mat ter consistent with widespread demyelination likely from small vessel ischemic change. 2. Age-related atrophy. 3. Suspected encephalomalacia and lacunar infarction at the left thalamus. The re is a small focus of increased signal on the diffusion weighted images which is likely a T2 shine through phenomenon versus a small component of acute lacun ar infarction. 4. Nonspecific small area of intermediate signal seen in the bony silhouette j ust below the pituitary. 5. Multiple areas of low signal seen on yesterday while images which could rep resent the sequela of prior hemorrhage. Objective Remarks GENERAL: Well-appearing, no acute distress SKIN: Warm and dry. HEAD: Normocephalic. EYES: No scleral icterus. No injection or drainage. NECK: Supple, trachea midline. No JVD or lymphadenopathy. CARDIOVASCULAR: Regular rate and rhythm without murmurs, gallops, or rubs. RESPIRATORY: Breath sounds equal bilaterally. No accessory muscle use. GASTROINTESTINAL: Abdomen soft, non-tender, nondistended. MUSCULOSKELETAL: No cyanosis, or edema. A/P Assessment and Plan 62-year-old female with past medical history significant for hypertension, diabetes, history of CVA with residual left-sided weakness, history of aortic dissection repair in 1988, CHF, coronary artery disease status post [place] 2010 and cardiac stent placement on Brilinta, rheumatoid arthritis and COPD with ongoing tobaccoism who presents to [facility] ED with altered mental status and near syncopal episode. Acute encephalopathy, improved Syncopal/near syncopal episode Left Carotid Stenosis. Hx of previous CVA x 2 2012 and 2014 with residual left-sided weakness Trops neg Head CT shows prominent ventricles which are stable MRI shows white matter changes, small focus of increased signal possibly representing acute lacunar infarction -also shows nonspecific signal and bony portion of the sella inferior to the pituitary Brain MRA negative Carotid ultrasound shows moderate atherosclerotic plaque, no hemodynamically significant stenosis Neurology following, appreciate assistance. Per Dr. Long's note, MRI/MRA negative. Patient had 90% left ICA by CTA in 2014. He is also recommended loop recorder placement and anticoagulation in 2014. Will order repeat neck CTA. Passed ST swallow eval ECHO EF at 55% Vascular surgery consulted, appreciate assistance Neurochecks Consult stroke navigator ASA 81mg daily and Lipitor Bedside swallow evaluation OT recommends home with home health OT. PT recommends outpatient PT if patient willing. Monitor on cardiac telemetry Fall/seizure/aspiration precautions 08/10 next CTA shows greater than 90% stenosis at the origin of the left internal carotid artery with 40-50% stenosis on the right. He also mentions thyromegaly with possible nodule of the left. The patient could have an ultrasound of the thyroid as an outpatient. Hypertension--> controlled this morning 08/12 Continue on Clonidine per her home regimen Continue to monitor BP and adjust treatment accordingly. 08/10 BP still severely elevated. I will increase clonidine dose to 0.2 mg p.o. 3 times daily. I will also start the patient on amlodipine 5 mg p.o. daily. Continue to monitor vital signs. 08/11 blood pressure is still severely elevated. Add hydralazine p.o. and amlodipine. Monitor blood pressure patient can be discharged if systolic blood pressure less than 160 Diabetes mellitus fairly well controlled with HgbA1c 7.0 Accu-Cheks and insulin sliding scale Continue on diabetic diet CAD s/p SC with subsequent stent implant 2010 Patient has no complaints of chest pain Continue patient on home dose of Brilinta and ASA daily monitor CHF, diastolic dysfunction, not in acute exacerbation Patient refusing Coreg and spironolactone she says she does not take those medications at home. Medications discontinued. Monitor for evidence of fluid overload COPD with ongoing tobaccoism, not in acute exacerbation Discussed smoking cessation, patient states that she is not interested in quitting smoking Continue on Symbicort Duonebs prn Supplemental oxygen as needed to maintain O2 sats greater than 92% Continue to monitor respiratory function Hypokalemia -resolved. DVT prophylaxis -Heparin sq Dorys Underwood MD Aug 12, 2017 08:10
[2017-08-12] MEDS: ATORVASTATIN 80 MG TAB PO SCH (09:00)
[2017-08-12] MEDS: SODIUM CHLORIDE 0.9% FLUSH 10 ML FLUSH IV FLUSH SCH (09:00)
--- NOTE | 2017-08-12 09:50 | HHI.PR ---
Objective Vital Signs Date Time Temp Pulse Resp B/P (MAP) Pulse Ox O2 Delivery O2 Flow Rate FiO2 08/12/17 04:00 97.7 64 20 129/61 (83) 100 08/12/17 04:00 Room Air 08/12/17 04:00 73 08/12/17 00:00 66 08/12/17 00:00 97.2 67 22 152/69 (96) 100 08/12/17 00:00 Room Air 08/11/17 20:00 97.7 69 20 150/68 (95) 99 08/11/17 20:00 Room Air 08/11/17 20:00 69 08/11/17 16:14 98.7 71 19 157/87 (110) 100 08/11/17 15:10 206/93 (130) 08/11/17 15:10 181/82 (115) 08/11/17 12:14 97.8 62 20 192/78 (116) 100 08/11/17 12:00 65 I/O 08/11/17 08/11/17 08/11/17 08/12/17 08/12/17 08/12/17 07:00 15:00 23:00 07:00 15:00 23:00 Intake Total 595 ml 420 ml 480 ml Output Total 400 ml 2300 ml 800 ml Balance 195 ml -1880 ml -320 ml Intake Oral 595 ml 420 ml 480 ml Output Urine Total 400 ml 2300 ml 800 ml # Bowel Movements 0 Result Diagram: 08/08/17 0210 08/10/17 0748 Objective Remarks awake alert nad speech nl good energy Assessment and Plan Assessment and Plan imp mri/a and us neg she had left ica 90% by cta in past 2016 if she is interested this could be repeated and vascular called nothing new ow here neurowise'' i though she should get loop placed and be anticoagulated in 2016 with mult old cva but evidently she was not interested in all that then 08/12/17 feels well and walkingwell yest nad i dw her if she has a 90% left ica stenosis this should be fixed at some point in someone so young as her cva risk 2% per yr so 40% chance of cva in her lifetime and would be reduced to 20% with cea she will think about it i saw vascular note i will fu office with her Jas Long MD Aug 12, 2017 09:50
[2017-08-12] MEDS: PANTOPRAZOLE SOD 20 MG DELAYED RELEASE TAB PO SCH (09:52)
[2017-08-12] MEDS: ASPIRIN 81 MG CHEW TAB CHEW SCH (09:52)
[2017-08-12] MEDS: TICAGRELOR 90 MG TAB PO SCH (09:53)
[2017-08-12] MEDS: cloNIDine HCL 0.2 MG TAB PO SCH ×2 (09:53→13:34)
[2017-08-12] MEDS: INSULIN ASPART SUPPLEMENTAL SCALE SQ SCH ×2 (09:57→13:34)
[2017-08-12] MEDS: BUDESONIDE-FORMOTEROL 160/4.5 MCG INHALER INH SCH (09:58)
[2017-08-12 12:00] VITALS: BP 147/97; PULSE 68; PULSE 69; RESP 20; TEMP 97.8; O2SAT 100
[2017-08-12] MEDS ORDERED: AMLO10 PO ×2 (14:15→14:33)
[2017-08-12] MEDS ORDERED: CLON.2 PO (14:33)
[2017-08-12] MEDS ORDERED: ATOR80TA45 PO (14:33)
[2017-08-12 16:00] VITALS: PULSE 69
== END 2017-08-12 16:47 | disposition home or self-care (01) | DRG 71 ==
LOC: NEPC 01:45 → NEDA 04:01 → N03B 09:46 → OBSVTOIN 08-09 09:57 → N04B 08-09 16:12
PROVIDERS: ADMIT Family Medicine; ATTEND Family Medicine
DX: G93.40 Encephalopathy, unspecified (principal); I50.32 Chronic diastolic (congestive) heart failure; I11.0 Hypertensive heart disease with heart failure; I95.9 Hypotension, unspecified; I69.354 Hemiplegia and hemiparesis following cerebral infarction affecting left non-dominant side; R55 Syncope and collapse; I65.22 Occlusion and stenosis of left carotid artery; R26.2 Difficulty in walking, not elsewhere classified; E11.9 Type 2 diabetes mellitus without complications; K21.9 Gastro-esophageal reflux disease without esophagitis; R00.1 Bradycardia, unspecified; E87.6 Hypokalemia; I25.10 Atherosclerotic heart disease of native coronary artery without angina pectoris; M06.9 Rheumatoid arthritis, unspecified; E78.00 Pure hypercholesterolemia, unspecified; G47.30 Sleep apnea, unspecified; J44.9 Chronic obstructive pulmonary disease, unspecified; R32 Unspecified urinary incontinence; M19.90 Unspecified osteoarthritis, unspecified site; F17.200 Nicotine dependence, unspecified, uncomplicated; I25.2 Old myocardial infarction; Z88.0 Allergy status to penicillin; Z95.5 Presence of coronary angioplasty implant and graft; Z90.49 Acquired absence of other specified parts of digestive tract; Z79.84 Long term (current) use of oral hypoglycemic drugs; Z79.82 Long term (current) use of aspirin; Z66 Do not resuscitate
CPT/HCPCS: 70450; 70498; 70544; 70551; 71045; 80048; 80053; 80061; 80307; 81001; 82140; 82550; 82948; 83036; 83690; 83880; 84443; 84484; 85025; 85610; 85730; 93005; 93306; 93880; 94664; 96360; 96361; 96372; G0378; G8987-GO; G8987-GP; G8988-GO; G8988-GP; J1644; J1815; J7030; Q9967